=== PATIENT | male | born 1970 | race Hispanic/Latino ===

== ENCOUNTER 2018-04-01 22:21 | Emergency (ER) | payer SELFPAY ==
--- NOTE | 2018-04-01 23:15 | EDPHYS ---
Physician Documentation [facility] Name: Manfred Ralph Age: 47 yrs Sex: Male : 1970 Arrival Date: 04/01/2018 Time: 22:26 Bed 3 Private MD: ED Physician Magdiel Nunez HPI: 04/01 23:15 This 47 yrs old Male presents to ER via [employer] with complaints of pm1 ARTHRITIS. 23:15 The patient presents with pain, that is chronic. The complaints affect the left knee. pm1 Context:. Onset: The symptoms/episode began/occurred just prior to arrival. Modifying factors: The symptoms are alleviated by nothing. the symptoms are aggravated by movement, bending knee. Associated signs and symptoms: Pertinent negatives calf tenderness, fever. Treatment prior to arrival includes: no previous treatment. The patient has experienced similar episodes in the past, chronically. The patient has not recently seen a physician. Patient with history of arthritis to left knee. Patient reports that when he is under stress, and in this case getting arrested, his arthritis flares up. Historical: - Allergies: 22:32 No Known Allergies; bp - Home Meds: 22:32 None [Active]; bp - PMHx: 22:32 neuropathy; Hepatitis C; Diabetes - NIDDM; Cirrhosis; ADD/ADHD; Arthritis; bp - Immunization history:: Adult Immunizations up to date. - Social history:: Smoking status: unknown. - Ebola Screening: : Patient negative for fever greater than or equal to 101.5 degrees Fahrenheit, and additional compatible Ebola Virus Disease symptoms Patient denies exposure to infectious person Patient denies travel to an Ebola-affected area in the 21 days before illness onset No symptoms or risks identified at this time. ROS: 23:15 Constitutional: Negative for fever, chills, and weight loss, Eyes: Negative for injury, pm1 pain, redness, and discharge, ENT: Negative for injury, pain, and discharge, Neck: Negative for injury, pain, and swelling, Cardiovascular: Negative for chest pain, palpitations, and edema, Respiratory: Negative for shortness of breath, cough, wheezing, and pleuritic chest pain, Abdomen/GI: Negative for abdominal pain, nausea, vomiting, diarrhea, and constipation, Back: Negative for injury and pain, MS/Extremity: Negative for injury and deformity, Skin: Negative for injury, rash, and discoloration. 23:15 Neuro: Negative for headache, weakness, numbness, tingling, and seizure. 23:15 MS/extremity: Positive for pain, of the left knee. Exam: 23:15 Constitutional: This is a well developed, well nourished patient who is awake, alert, pm1 and in no acute distress. Head/Face: Normocephalic, atraumatic. Eyes: Pupils equal round and reactive to light, extra-ocular motions intact. Lids and lashes normal. Conjunctiva and sclera are non-icteric and not injected. Cornea within normal limits. Periorbital areas with no swelling, redness, or edema. ENT: Nares patent. No nasal discharge, no septal abnormalities noted. Tympanic membranes are normal and external auditory canals are clear. Oropharynx with no redness, swelling, or masses, exudates, or evidence of obstruction, uvula midline. Mucous membranes moist. Neck: Trachea midline, no thyromegaly or masses palpated, and no cervical lymphadenopathy. Supple, full range of motion without nuchal rigidity, or vertebral point tenderness. No Meningismus. Chest/axilla: Normal chest wall appearance and motion. Nontender with no deformity. No lesions are appreciated. Cardiovascular: Regular rate and rhythm with a normal S1 and S2. No gallops, murmurs, or rubs. Normal PMI, no JVD. No pulse deficits. Respiratory: Lungs have equal breath sounds bilaterally, clear to auscultation and percussion. No rales, rhonchi or wheezes noted. No increased work of breathing, no retractions or nasal flaring. Abdomen/GI: Soft, non-tender, with normal bowel sounds. No distension or tympany. No guarding or rebound. No evidence of tenderness throughout. Back: No spinal tenderness. No costovertebral tenderness. Full range of motion. Skin: Warm, dry with normal turgor. Normal color with no rashes, no lesions, and no evidence of cellulitis. 23:15 Musculoskeletal/extremity: Extremities: grossly normal except: noted in the left knee: mild tenderness. Vital Signs: 22:32 BP 114 / 90; Pulse 93; Resp 20; Temp 97.9; Pulse Ox 97% ; Weight 72.57 kg; Height 5 ft. bp 11 in. (180.34 cm); 23:24 BP 133 / 91; Pulse 79; Resp 17; Pulse Ox 98% on R/A; rv 22:32 Body Mass Index 22.32 (72.57 kg, 180.34 cm) bp MDM: 22:50 Patient medically screened. pm1 23:13 Data reviewed: vital signs. Data interpreted: Pulse oximetry: on room air is 97 %. pm1 Interpretation: normal. Counseling: I had a detailed discussion with the patient and/or guardian regarding: the historical points, exam findings, and any diagnostic results supporting the discharge/admit diagnosis, the need for outpatient follow up, to return to the emergency department if symptoms worsen or persist or if there are any questions or concerns that arise at home. Administered Medications: 23:22 Drug: TORadol 60 mg Route: IM; Site: right deltoid; rv 23:45 Follow up: Response: Pain is decreased bp Disposition: 04/02 07:15 Co-signature as Attending Physician, Magdiel Nunez MD I agree with the assessment and wai plan of care. Disposition: 04/01/18 23:15 Discharged to Home. Impression: Pain in left knee - Arthritis. - Condition is Stable. - Discharge Instructions: Arthralgia, Arthritis, Nonspecific. - Prescriptions for Diclofenac Sodium 75 mg Oral Tablet Sustained Release - take 1 tablet by ORAL route 2 times per day; 30 tablet. - Medication Reconciliation Form, Thank You Letter form. - Follow up: Emergency Department; When: As needed; Reason: Worsening of condition. Follow up: Private Physician; When: 2 - 3 days; Reason: Recheck today's complaints, Continuance of care, Re-evaluation by your physician. - Problem is new. - Symptoms have improved. Signatures: Magdiel Nunez MD MD cha Marinas, Patrick, SHANK PAPERER SHANK PAPERER pm1 David Ritter, RN RN bp Destin Haque, RN RN rv Corrections: (The following items were deleted from the chart) 04/01 23:45 23:15 04/01/2018 23:15 Discharged to Home. Impression: Pain in left knee - Arthritis. bp Condition is Stable. Forms are Medication Reconciliation Form, Thank You Letter, Antibiotic Education, Prescription Opioid Use. Follow up: Emergency Department; When: As needed; Reason: Worsening of condition. Follow up: Private Physician; When: 2 - 3 days; Reason: Recheck today's complaints, Continuance of care, Re-evaluation by your physician. Problem is new. Symptoms have improved. pm1
--- NOTE | 2018-04-01 23:15 | ER ---
Nurse's Notes [facility] Name: Manfred Ralph Age: 47 yrs Sex: Male : 1970 Arrival Date: 04/01/2018 Time: 22:26 Bed 3 Private MD: Diagnosis: Pain in left knee-Arthritis Presentation: 04/01 22:30 Presenting complaint: Patient states: IT'S MY ARTHRITIS. MY ARTHRITIS AND MY DIABETES bp ALWAYS GET WORSE WHEN I GET ARRESTED. Transition of care: patient was not received from another setting of care. Onset of symptoms is unknown. Risk Assessment: Do you want to hurt yourself or someone else? Patient reports no desire to harm self or others. Initial Sepsis Screen: Does the patient meet any 2 criteria? No. Patient's initial sepsis screen is negative. Does the patient have a suspected source of infection? No. Patient's initial sepsis screen is negative. Care prior to arrival: None. 22:30 Method Of Arrival: [employer] [facility]: [facility] bp 22:30 Acuity: PAUL 5 bp Triage Assessment: 22:32 General: Appears in no apparent distress. comfortable, slender, Behavior is calm, bp cooperative, appropriate for age. Pain: Complains of pain in right leg and left leg. EENT: No deficits noted. Neuro: Level of Consciousness is awake, alert, obeys commands, Oriented to person, place, time, situation, Appropriate for age. Cardiovascular: No deficits noted. Respiratory: Airway is patent Respiratory effort is even, unlabored, Respiratory pattern is regular, symmetrical. GI: No signs and/or symptoms were reported involving the gastrointestinal system. : No signs and/or symptoms were reported regarding the genitourinary system. Derm: No signs and/or symptoms reported regarding the dermatologic system. Musculoskeletal: Reports pain in right leg and left leg. Historical: - Allergies: 22:32 No Known Allergies; bp - Home Meds: 22:32 None [Active]; bp - PMHx: 22:32 neuropathy; Hepatitis C; Diabetes - NIDDM; Cirrhosis; ADD/ADHD; Arthritis; bp - Immunization history:: Adult Immunizations up to date. - Social history:: Smoking status: unknown. - Ebola Screening: : Patient negative for fever greater than or equal to 101.5 degrees Fahrenheit, and additional compatible Ebola Virus Disease symptoms Patient denies exposure to infectious person Patient denies travel to an Ebola-affected area in the 21 days before illness onset No symptoms or risks identified at this time. Screenin:36 Abuse screen: Denies threats or abuse. Denies injuries from another. Nutritional bp screening: No deficits noted. Tuberculosis screening: No symptoms or risk factors identified. Fall Risk None identified. Assessment: 22:35 Reassessment: SEE TRIAGE NOTE. PT STATES MX YEAR MED NON-COMPLIANCE AND ILLNESS bp EXACERBATION WHEN BEING INCARCERATED. PT AMBULATORY WITH STEADY GAIT. 23:42 Reassessment: Reassessment: PT D/C IN [facility], DX WITH ARTHRITIS. bp Vital Signs: 22:32 BP 114 / 90; Pulse 93; Resp 20; Temp 97.9; Pulse Ox 97% ; Weight 72.57 kg; Height 5 ft. bp 11 in. (180.34 cm); 23:24 BP 133 / 91; Pulse 79; Resp 17; Pulse Ox 98% on R/A; rv 22:32 Body Mass Index 22.32 (72.57 kg, 180.34 cm) bp ED Course: 22:26 Patient arrived in ED. es 22:30 David Ritter, RN is Primary Nurse. bp 22:31 Triage completed. bp 22:32 Arm band placed on. bp 22:36 Patient has correct armband on for positive identification. Bed in low position. Call bp light in reach. Side rails up X 1. Adult w/ patient. 22:49 Deandre Bennett NP is PHCP. pm1 22:49 Magdiel Nunez MD is Attending Physician. pm1 23:43 No provider procedures requiring assistance completed. Patient did not have IV access bp during this emergency room visit. Administered Medications: 23:22 Drug: TORadol 60 mg Route: IM; Site: right deltoid; rv 23:45 Follow up: Response: Pain is decreased bp Outcome: 23:15 Discharge ordered by . pm1 23:44 Discharged to [employer] bp 23:44 Condition: stable 23:44 Discharge instructions given to patient, Instructed on discharge instructions, follow up and referral plans. medication usage, Demonstrated understanding of instructions, follow-up care, medications, Prescriptions given X 1. 23:45 Patient left the ED. bp Signatures: Lina Bacon Patrick, NP GORE CUTTER pm1 David Ritter, NICKY RN bp Destin Haque RN RN rv Corrections: (The following items were deleted from the chart) 23:43 23:42 Reassessment: bp bp
[2018-04-01] MEDS ORDERED: KETOROLAC 30 MG/ML INJ ONE (23:18)
[2018-04-02 00:20] VITALS: TEMP 97.9
[2018-04-02 00:21] VITALS: BP 133/91; O2SAT 98
== END 2018-04-01 23:45 | disposition home or self-care (01) ==
LOC: ER 22:21
DX: M17.12 Unilateral primary osteoarthritis, left knee (principal); B19.20 Unspecified viral hepatitis C without hepatic coma; E11.9 Type 2 diabetes mellitus without complications; K74.60 Unspecified cirrhosis of liver; F90.9 Attention-deficit hyperactivity disorder, unspecified type
CPT/HCPCS: 96372; 99283

== ENCOUNTER 2018-06-29 21:10 | Emergency (ER) | payer SELFPAY ==
--- NOTE | 2018-06-29 21:56 | ER ---
Nurse's Notes [facility] Name: Manfred Ralph Age: 47 yrs Sex: Male : 1970 Arrival Date: 06/29/2018 Time: 21:14 Bed 8 Private MD: Diagnosis: Encounter for general adult medical examination without abnormal findings Presentation: 06/29 21:15 Presenting complaint: EMS states: they were toned out for report of pt having high bb blood sugar. Transition of care: patient was not received from another setting of care. Onset of symptoms was 2014. Risk Assessment: Do you want to hurt yourself or someone else? Patient reports no desire to harm self or others. Initial Sepsis Screen: Does the patient meet any 2 criteria? No. Patient's initial sepsis screen is negative. Does the patient have a suspected source of infection? No. Patient's initial sepsis screen is negative. Care prior to arrival: Glucose check: 257. 21:15 Method Of Arrival: EMS: [facility] bb 21:15 Acuity: PAUL 3 bb 21:17 Note pt states he is having pain all over his symptoms started approx 3 years ago when bb he started having his medications changed now he is unable to eat and he vomits every morning he is only able to eat a small amount once a day or less. Pt has left heel wound. Historical: - Allergies: 21:16 No Known Allergies; bb - Home Meds: 21:16 Unable to obtain [Active]; bb - PMHx: 21:16 ADD/ADHD; Arthritis; Cirrhosis; Diabetes - NIDDM; Hepatitis C; neuropathy; bb - Immunization history:: Adult Immunizations unknown. - Social history:: Smoking status: Patient/guardian denies using tobacco, Patient/guardian denies using alcohol, street drugs. - Ebola Screening: : No symptoms or risks identified at this time. Screenin:25 Abuse screen: Denies threats or abuse. Denies injuries from another. Nutritional aa1 screening: Has had N/V for 3 or more days. Tuberculosis screening: No symptoms or risk factors identified. Fall Risk None identified. Assessment: 21:25 General: Appears in no apparent distress. comfortable, slender, unkempt, Behavior is aa1 calm, cooperative, appropriate for age. Pain: Complains of pain in left foot and right foot and left leg and right leg Pain currently is 10 out of 10 on a pain scale. Pain began years ago. Is chronic. Neuro: Level of Consciousness is awake, alert, obeys commands, Moves all extremities. Speech is normal. Cardiovascular: Heart tones S1 S2 present Rhythm is regular. Respiratory: Airway is patent Respiratory effort is even, unlabored, Respiratory pattern is regular, symmetrical. GI: Abdomen is non-distended, Reports anorexia, vomiting, since past 3 years. : No signs and/or symptoms were reported regarding the genitourinary system. EENT: Poor dentition noted. Reports his teeth having been falling out over past 3 years. Derm: Skin is intact, is healthy with good turgor, Skin is pink, warm \T\ dry. multiple areas of discoloration noted to BLE without signs of infections noted. Musculoskeletal: Circulation, motion, and sensation intact. Capillary refill < 3 seconds, Range of motion: intact in all extremities. 21:45 Reassessment: Patient appears in no apparent distress at this time. Patient is alert, aa1 oriented x 3, equal unlabored respirations, skin warm/dry/pink. Pt medically screened and declined treatment. Vital Signs: 21:16 BP 144 / 93; Pulse 76; Resp 16 S; Temp 97.6(TE); Pulse Ox 100% on R/A; Weight 72.57 kg bb (R); Height 5 ft. 11 in. (180.34 cm) (R); Pain 10/10; 21:16 Body Mass Index 22.32 (72.57 kg, 180.34 cm) bb ED Course: 21:14 Patient arrived in ED. bb 21:16 Triage completed. bb 21:16 Arm band placed on Patient placed in an exam room, on a stretcher, on pulse oximetry. bb 21:20 Shay Eldridge PA is PHCP. jr8 21:20 Santana لاعلي MD is Attending Physician. jr8 21:24 Yola Garcia RN is Primary Nurse. aa1 21:25 Patient has correct armband on for positive identification. Bed in low position. Call aa1 light in reach. Pulse ox on. NIBP on. 21:45 No provider procedures requiring assistance completed. Patient did not have IV access aa1 during this emergency room visit. Administered Medications: No medications were administered Point of Care Testing: Blood Glucose: 21:24 Blood Glucose: 281 mg/dL; aa1 Ranges: Outcome: 21:50 Medical screen evaluation completed per provider. Patient declined treatment. aa1 21:50 Condition: stable 21:50 Following a medical screening exam, the patient was provided information regarding alternative care sites and resources available per registration personnel. 21:55 Discharge ordered by MD. espitia 22:06 Patient left the ED. aa1 Signatures: Yola Garcia RN RN aa1 Alecia Rothman RN RN bb Shay Eldridge PA PA jr8
--- NOTE | 2018-06-29 21:56 | EDPHYS ---
Physician Documentation [facility] Name: Manfred Ralph Age: 47 yrs Sex: Male : 1970 Arrival Date: 06/29/2018 Time: 21:14 Bed 8 Private MD: ED Physician Santana العلي HPI: 06/29 21:21 This 47 yrs old Male presents to ER via EMS with complaints of chronic pain. jr8 21:21 Onset: The symptoms/episode began/occurred 4 year(s) ago. Associated signs and jr8 symptoms: Pertinent positives: None. Current symptoms: In the emergency department the patient's symptoms are unchanged from the initial presentation. Patient stated that he is non compliant with his medications because they hurt his stomach. Has been trying to follow up with [facility] for the past 4 years but has yet to see anyone. That his last PCP is no longer there. Came to ED today because his lower legs hurt which he stated that he has had for 4 years. Denies new pain. Denies any other complaints . Historical: - Allergies: 21:16 No Known Allergies; bb - Home Meds: 21:16 Unable to obtain [Active]; bb - PMHx: 21:16 ADD/ADHD; Arthritis; Cirrhosis; Diabetes - NIDDM; Hepatitis C; neuropathy; bb - Immunization history:: Adult Immunizations unknown. - Social history:: Smoking status: Patient/guardian denies using tobacco, Patient/guardian denies using alcohol, street drugs. - Ebola Screening: : No symptoms or risks identified at this time. ROS: 21:21 Eyes: Negative for injury, pain, redness, and discharge, ENT: Negative for injury, jr8 pain, and discharge, Neck: Negative for injury, pain, and swelling, Cardiovascular: Negative for chest pain, palpitations, and edema, Respiratory: Negative for shortness of breath, cough, wheezing, and pleuritic chest pain, Abdomen/GI: Negative for abdominal pain, nausea, vomiting, diarrhea, and constipation, Back: Negative for injury and pain, Skin: Negative for injury, rash, and discoloration. 21:21 MS/extremity: Positive for pain, of the right leg and left leg. 21:21 Neuro: Positive for numbness, tingling, of the right foot, left foot, right leg and left leg. Exam: 21:21 Eyes: Pupils equal round and reactive to light, extra-ocular motions intact. Lids and jr8 lashes normal. Conjunctiva and sclera are non-icteric and not injected. Cornea within normal limits. Periorbital areas with no swelling, redness, or edema. ENT: Nares patent. No nasal discharge, no septal abnormalities noted. Tympanic membranes are normal and external auditory canals are clear. Oropharynx with no redness, swelling, or masses, exudates, or evidence of obstruction, uvula midline. Mucous membranes moist. Neck: Trachea midline, no thyromegaly or masses palpated, and no cervical lymphadenopathy. Supple, full range of motion without nuchal rigidity, or vertebral point tenderness. No Meningismus. Cardiovascular: Regular rate and rhythm with a normal S1 and S2. No gallops, murmurs, or rubs. Normal PMI, no JVD. No pulse deficits. Respiratory: Lungs have equal breath sounds bilaterally, clear to auscultation and percussion. No rales, rhonchi or wheezes noted. No increased work of breathing, no retractions or nasal flaring. Abdomen/GI: Soft, non-tender, with normal bowel sounds. No distension or tympany. No guarding or rebound. No evidence of tenderness throughout. Back: No spinal tenderness. No costovertebral tenderness. Full range of motion. Skin: Warm, dry with normal turgor. Normal color with no rashes and no evidence of cellulitis. Scabbing wounds to bilateral legs without bleeding or erythema MS/ Extremity: Pulses equal, no cyanosis. Neurovascular intact. Full, normal range of motion. Neuro: Awake and alert, GCS 15, oriented to person, place, time, and situation. Cranial nerves II-XII grossly intact. Motor strength 5/5 in all extremities. Unable to complete sensory exam dena bourgeois stated that touching him hurts too much Vital Signs: 21:16 BP 144 / 93; Pulse 76; Resp 16 S; Temp 97.6(TE); Pulse Ox 100% on R/A; Weight 72.57 kg bb (R); Height 5 ft. 11 in. (180.34 cm) (R); Pain 10/10; 21:16 Body Mass Index 22.32 (72.57 kg, 180.34 cm) MDM: 21:20 Patient medically screened. 8 21:46 Data reviewed: vital signs, nurses notes, lab test result(s), finger stick glucose. jr8 Data interpreted: Pulse oximetry: on room air is 100 %. Interpretation: normal. Counseling: I had a detailed discussion with the patient and/or guardian regarding: the historical points, exam findings, and any diagnostic results supporting the discharge/admit diagnosis, the need for outpatient follow up, a family practitioner, to return to the emergency department if symptoms worsen or persist or if there are any questions or concerns that arise at home. Medical screen evaluation completed. [facility] emergency medical condition absent. ED course: Patient hemodynamically stable. Physical exam from what the patient would let me complete was without acute findings. Explained to patient that there is no emergent process at this time. That the chronic pain that he has had for several years is something that needs to be further addressed with his PCP or pain management. Otherwise we would be happy to address any other medical concerns that he had. Patient medically screened and denied further evaluation and treatment at that time . 06/29 21:20 Order name: Glucose Level; Complete Time: 21:24 jr8 Administered Medications: No medications were administered Point of Care Testing: Blood Glucose: 21:24 Blood Glucose: 281 mg/dL; aa1 Ranges: Critical Glucose Levels:Adult <50 mg/dl or >400 mg/dl <40 mg/dl or >180 mg/dl Disposition: 21:53 Diabetic Neuropathy, Chronic Pain. jr8 22:13 Co-signature as Attending Physician, Santana العلي MD. [facility] Disposition: 06/29/18 21:55 Discharged to Home. Impression: Encounter for general adult medical examination without abnormal findings. - Condition is Stable. - Medication Reconciliation Form, Thank You Letter, Antibiotic Education, Prescription Opioid Use form. - Follow up: Private Physician; When: 1 - 2 days; Reason: Recheck today's complaints, Continuance of care, Re-evaluation by your physician. - Problem is new. - Symptoms are unchanged. Signatures: Yola Garcia RN RN aa1 Santana العلي MD MD pk Alecia Rothman RN RN bb Roszak, Josh, PA PA jr8 Corrections: (The following items were deleted from the chart) 21:48 21:21 Eyes: Pupils equal round and reactive to light, extra-ocular motions intact. Lids jr8 and lashes normal. Conjunctiva and sclera are non-icteric and not injected. Cornea within normal limits. Periorbital areas with no swelling, redness, or edema. ENT: Nares patent. No nasal discharge, no septal abnormalities noted. Tympanic membranes are normal and external auditory canals are clear. Oropharynx with no redness, swelling, or masses, exudates, or evidence of obstruction, uvula midline. Mucous membranes moist. Neck: Trachea midline, no thyromegaly or masses palpated, and no cervical lymphadenopathy. Supple, full range of motion without nuchal rigidity, or vertebral point tenderness. No Meningismus. Cardiovascular: Regular rate and rhythm with a normal S1 and S2. No gallops, murmurs, or rubs. Normal PMI, no JVD. No pulse deficits. Respiratory: Lungs have equal breath sounds bilaterally, clear to auscultation and percussion. No rales, rhonchi or wheezes noted. No increased work of breathing, no retractions or nasal flaring. Abdomen/GI: Soft, non-tender, with normal bowel sounds. No distension or tympany. No guarding or rebound. No evidence of tenderness throughout. Back: No spinal tenderness. No costovertebral tenderness. Full range of motion. Skin: Warm, dry with normal turgor. Normal color with no rashes, no lesions, and no evidence of cellulitis. MS/ Extremity: Pulses equal, no cyanosis. Neurovascular intact. Full, normal range of motion. Neuro: Awake and alert, GCS 15, oriented to person, place, time, and situation. Cranial nerves II-XII grossly intact. Motor strength 5/5 in all extremities. Unable to complete sensory exam mirellatahira bourgeois stated that touching him hurts too much jrEnrrique 22:06 21:55 06/29/2018 21:55 Discharged to Home. Impression: Encounter for general adult aa1 medical examination without abnormal findings. Condition is Stable. Forms are Medication Reconciliation Form, Thank You Letter, Antibiotic Education, Prescription Opioid Use. Follow up: Private Physician; When: 1 - 2 days; Reason: Recheck today's complaints, Continuance of care, Re-evaluation by your physician. Problem is new. Symptoms are unchanged. jr8 22:19 21:21 Patient stated that he is non compliant with his medications because they hurt jr8 his stomach. Has been trying to follow up with [facility] for the past 4 years but cannot see anyone. Came to ED today because his lower legs hurt which he stated that he has had for years. jr8 22:21 21:46 ED course: Patient hemodynamically stable. Physical exam from what the patient jr8 would let me complete was without acute findings. Explained to patient that there is no emergent process at this time. That the chronic pain that he has had for several years is something that needs to be further addressed with his PCP or pain management. Otherwise we would be happy to address any other medical concerns that he had. Patient medically screened and denied further evaluation and treatment at that time . jr8
[2018-06-29 22:57] VITALS: BP 144/93; TEMP 97.6; O2SAT 100
== END 2018-06-29 22:06 | disposition home or self-care (01) ==
LOC: ER 21:10
DX: Z00.00 Encounter for general adult medical examination without abnormal findings (principal); E11.40 Type 2 diabetes mellitus with diabetic neuropathy, unspecified; G89.29 Other chronic pain; B18.2 Chronic viral hepatitis C; M19.90 Unspecified osteoarthritis, unspecified site
CPT/HCPCS: 82962; 99283

== ENCOUNTER 2018-09-15 15:51 | Emergency (ER) | payer SELFPAY ==
[2018-09-15 17:08] LABS: Absolute Lymphocytes (CBC) 2.6 K/uL (0.7-4.9); Absolute Monocytes 0.6 K/uL (0.1-1.3); Absolute Neutrophil 6.6 K/uL (1.8-8.0); Basophils % 0.6 % (0-1.3); Eosinophils % 0.6 % (0-4.4); Hematocrit 45.5 % (39.6-49.0); Lymphocytes % 26.4 % (15.3-44.8); MCH 31.2 pg (27.0-35.0); MCV 91.8 fL (80-100); RBC Red Blood Cell Count 4.95 M/uL (4.33-5.43)
[2018-09-15 17:12] LABS: Barbiturates NEGATIVE (NEGATIVE); Benzodiazepines NEGATIVE (NEGATIVE); Cocaine NEGATIVE (NEGATIVE); METHAMPHETAM NEGATIVE (NEGATIVE); Methadone NEGATIVE (NEGATIVE); Opiates NEGATIVE (NEGATIVE); Phencyclidine NEGATIVE (NEGATIVE); THC Cannibis NEGATIVE (NEGATIVE)
[2018-09-15 17:23] LABS: Protime INR 1.03
[2018-09-15 17:45] LABS: ALT/SGPT 19 U/L (12-78); AST/SGOT 13 U/L (15-37); Albumin 3.9 g/dL (3.4-5.0); Alkaline Phosphatase 94 U/L (45-117); BUN Blood Urea Nitrogen 21 mg/dL (7-18); Bicarbonate 31 mmol/L (21-32); Bilirubin Direct 0.1 mg/dL (0-0.2); Bilirubin Total 0.5 mg/dL (0.2-1.0); Glucose Level 240 mg/dL (74-106); Protein, Total 7.8 g/dL (6.4-8.2); Sodium Level 136 mmol/L (136-145)
[2018-09-15 17:53] LABS: Urine Blood NEGATIVE (NEG); Urine Glucose 2+ (NEG); Urine Protein TRACE (NEG); Urine Specific Gravity 1.025 (1.005-1.030); Urine pH 5.5 (5.0-7.0)
[2018-09-15] MEDS ORDERED: HYDROCODONE/APAP 7.5/325 MG TAB ONE (19:59)
[2018-09-15] MEDS ORDERED: ONDANSETRON 4 MG (ODT) TAB ONE (20:35)
[2018-09-16] MEDS ORDERED: LORazepam 2 MG/ML VIAL ONE (03:43)
--- NOTE | 2018-09-16 05:52 | EKG ---
Test Date: 2018-09-15 Test Time: 16:59:56 Assistant Reading Teacher: KOJO MEASUREMENT RESULTS: Intervals: Rate: 73 WA: 160 QRSD: 86 QT: 382 QTc: 420 [place]: P: 38 WA: 160 QRS: 58 T: 52 INTERPRETIVE STATEMENTS: Normal sinus rhythm Normal ECG Compared to ECG 07/05/2016 06:21:15 No significant changes Electronically Signed On 09-16-18 05:51:49 PLANT TOUR GUIDE by Varun Miranda
--- NOTE | 2018-09-16 09:18 | EDPHYS ---
Physician Documentation [facility] Name: Manfred Ralph Age: 47 yrs Sex: Male : 1970 Arrival Date: 09/15/2018 Time: 15:53 Bed 17 Private MD: None, None ED Physician Magdiel Nunez HPI: 09/15 16:55 This 47 yrs old Male presents to ER via Ambulatory with complaints of Suicidal ma2 Ideation. 16:55 The patient presents to the emergency department with suicide ideation, and the patient ma2 has a plan. Onset: The symptoms/episode began/occurred acutely, 1 day(s) ago. Associated signs and symptoms: Pertinent positives; anxiety, Pertinent negatives:. Severity of symptoms: At their worst the symptoms were severe in the emergency department the symptoms are unchanged. The patient has not experienced similar symptoms in the past. has hep c DM neuropathy depression here with SI x 1 day has guns and has a plan. Historical: - Allergies: 16:25 NKA; iw - PMHx: 16:23 ADD/ADHD; Arthritis; Cirrhosis; Diabetes - NIDDM; Hepatitis C; neuropathy; iw - Immunization history:: Adult Immunizations unknown. - Social history:: Patient uses street drugs, Patient/guardian denies using The patient lives with family, Smoking status: Patient uses tobacco products, Patient uses alcohol, street drugs, marijuana. - Ebola Screening: : Patient negative for fever greater than or equal to 101.5 degrees Fahrenheit, and additional compatible Ebola Virus Disease symptoms Patient denies exposure to infectious person Patient denies travel to an Ebola-affected area in the 21 days before illness onset No symptoms or risks identified at this time. - Family history:: not pertinent, pertinent for. - Hospitalizations: : No recent hospitalization is reported. ROS: 16:55 Constitutional: Negative for fever, chills, and weight loss, Eyes: Negative for injury, ma2 pain, redness, and discharge, Cardiovascular: Negative for chest pain, palpitations, and edema, Respiratory: Negative for shortness of breath, cough, wheezing, and pleuritic chest pain, Abdomen/GI: Negative for abdominal pain, nausea, diarrhea, and constipation. 16:55 Psych: Positive for depression, suicidal ideation, Negative for visual hallucinations, homicidal ideation. 16:55 All other systems are negative. Exam: 16:55 Constitutional: This is a well developed, well nourished patient who is awake, alert, ma2 and in no acute distress. Chest/axilla: Normal chest wall appearance and motion. Nontender with no deformity. No lesions are appreciated. Cardiovascular: Regular rate and rhythm with a normal S1 and S2. No gallops, murmurs, or rubs. Normal PMI, no JVD. No pulse deficits. Respiratory: Lungs have equal breath sounds bilaterally, clear to auscultation and percussion. No rales, rhonchi or wheezes noted. No increased work of breathing, no retractions or nasal flaring. Abdomen/GI: Soft, non-tender, with normal bowel sounds. No distension or tympany. No guarding or rebound. No evidence of tenderness throughout. 16:55 Psych: Affect is calm, Patient having thoughts of suicide. Delusions/hallucinations are not present. 09/16 19:51 Psych: pt alert and oriented x 3, cooperative, pleasant, wants to get his life right, wai get on disability. denies suicidal and homicidal ideation. Vital Signs: 09/15 16:15 BP 169 / 103; Pulse 75; Resp 18; Temp 98.1(TE); Pulse Ox 99% on R/A; Weight 68.04 kg; hj Height 5 ft. 9 in. (175.26 cm); 19:12 BP 126 / 95; Pulse 83; Resp 18; Temp 98.4(O); Pulse Ox 95% on R/A; jb5 23:00 BP 112 / 95; Pulse 83; Resp 18; Temp 98.7; Pulse Ox 98% on R/A; gc 09/16 03:11 BP 145 / 95; Pulse 98; Resp 18; Temp 98.7; Pulse Ox 99% on R/A; gc 07:03 BP 122 / 93; Pulse 81; Resp 16; Temp 98.8; Pulse Ox 98% on R/A; gc 11:00 BP 153 / 94; Pulse 86; Resp 16; Pulse Ox 99% on R/A; Pain 0/10; dh3 12:40 BP 165 / 91 LA (auto/reg); Pulse 88; Resp 18 S; Pulse Ox 100% on R/A; jp3 14:40 BP 139 / 80; Pulse 90; Resp 18; Pulse Ox 97% on R/A; gm 17:25 BP 127 / 92 LA Sitting (auto/reg); Pulse 88; Resp 18; Pulse Ox 99% on R/A; jp3 19:57 BP 154 / 96; Pulse 100; Resp 18; Pulse Ox 98% on R/A; mt 09/15 16:15 Body Mass Index 22.15 (68.04 kg, 175.26 cm) hj MDM: 09/15 16:04 Patient medically screened. ma2 16:55 Differential diagnosis: drug withdrawal. acute psychotic break, depression, psychosis ma2 secondary to non-compliance. 17:59 Data reviewed: vital signs, nurses notes, lab test result(s). Counseling: I had a ma detailed discussion with the patient and/or guardian regarding: the historical points, exam findings, and any diagnostic results supporting the discharge/admit diagnosis, the presence of at least one elevated blood pressure reading (>120/80) during this emergency department visit, lab results, radiology results. Medical screen evaluation completed. EMTALA emergency medical condition absent. ED course: patient is medically cleared and pending [facility] evaluation for active SI. 09/15 16:49 Order name: Acetaminophen [facility] 09/15 16:49 Order name: Basic Metabolic Panel [facility] 09/15 16:49 Order name: CBC with Diff [facility] 09/15 16:49 Order name: ETOH Level [facility] 09/15 16:49 Order name: Hepatic Function [facility] 09/15 16:49 Order name: PT-INR [facility] 09/15 16:49 Order name: Ptt, Activated [facility] 09/15 16:49 Order name: Salicylate [facility] 09/15 16:49 Order name: Urine Drug Screen [facility] 09/15 17:12 Order name: Urine Dipstick--Ancillary (enter results) 09/15 17:17 Order name: Urine Drug Screen; Complete Time: 17:58 EDMS 09/15 17:22 Order name: CBC with Automated Diff; Complete Time: 17:58 EDMS 09/15 17:23 Order name: Protime (+INR); Complete Time: 17:58 EDMS 09/15 17:23 Order name: PTT, Activated Partial Thromb; Complete Time: 17:58 EDMS 09/15 16:49 Order name: EKG; Complete Time: 16:50 [facility] 09/15 17:44 Order name: Alcohol Serum/Plasma; Complete Time: 17:58 EDMS 09/15 17:46 Order name: Basic Metabolic Panel; Complete Time: 17:58 EDMS 09/15 17:46 Order name: Liver (Hepatic) Function; Complete Time: 17:58 EDMS 09/15 17:46 Order name: Acetaminophen Level; Complete Time: 17:58 EDMS 09/15 17:50 Order name: Salicylates Level; Complete Time: 17:58 EDMS 09/15 17:53 Order name: Urine Dipstick-Ancillary; Complete Time: 17:58 EDMS 09/16 07:21 Order name: Diet Ada 1999 [place]; Complete Time: 07:23 sv 09/16 13:56 Order name: Glucose, Ancillary Testing; Complete Time: 19:51 EDMS 09/16 17:30 Order name: Glucose, Ancillary Testing; Complete Time: 19:51 EDMS 09/15 16:49 Order name: EKG - Nurse/Tech; Complete Time: 16:57 ma2 09/15 16:49 Order name: IV Saline Lock; Complete Time: 16:52 ma2 09/15 16:49 Order name: Labs collected and sent; Complete Time: 16:52 ma2 09/15 16:49 Order name: Urine Dipstick-Ancillary (obtain specimen); Complete Time: 16:52 ma2 09/16 11:44 Order name: Diet Ada 1999; Complete Time: 12:13 sv 09/16 16:49 Order name: Diet Ada 1999; Complete Time: 16:59 sv Administered Medications: 19:53 Drug: [place] (7.5 mg-325 mg) 1 tabs Route: PO; lp1 21:00 Follow up: Response: Pain is decreased lp1 20:28 Drug: Zofran 4 mg Route: PO; lp1 21:30 Follow up: Response: Nausea is decreased lp1 09/16 03:40 Drug: Ativan 2 mg Route: IVP; Site: right antecubital; lp1 19:24 Follow up: Response: No adverse reaction ak1 09:28 Drug: [place] (7.5 mg-325 mg) 1 tabs Route: PO; sv 10:09 Follow up: Response: No adverse reaction sv 17:02 Drug: [place] (7.5 mg-325 mg) 1 tabs Route: PO; sv 17:29 Follow up: Response: No adverse reaction sv 19:58 Drug: fentaNYL Patch (50 mcg/hr) 1 patches Route: Transdermal; Site: affected area; ak1 19:59 Follow up: Response: No adverse reaction; Pain is decreased ak1 Point of Care Testing: Blood Glucose: 09/15 23:44 Blood Glucose: 208 mg/dL; jb5 09/16 07:19 Blood Glucose: 199 mg/dL; jb1 12:40 Blood Glucose: 208 mg/dL; sv 12:40 done by [facility] Ranges: Critical Glucose Levels:Adult <50 mg/dl or >400 mg/dl <40 mg/dl or >180 mg/dl Disposition: 09/16/18 19:55 Discharged to Home. Impression: Suicidal ideations, Major depressive disorder, recurrent, Type 2 diabetes mellitus, Other chronic pain. - Condition is Stable. - Discharge Instructions: Chronic Pain, Type 2 Diabetes Mellitus, Diagnosis, Adult, Helping Someone Who is Suicidal, Type 2 Diabetes Mellitus, Diagnosis, Adult, [id number], Major Depressive Disorder, [id number], Major Depressive Disorder. - Prescriptions for Pepcid 20 mg Oral Tablet - take 1 tablet by ORAL route every 12 hours for 10 days; 20 tablet. Tylenol- Codeine #3 300-30 mg Oral Tablet - take 2 tablets by ORAL route every 6 hours As needed; 26 tablet. Zofran 4 mg Oral Tablet - take 1 tablet by ORAL route every 12 hours As needed; 20 tablet. - Medication Reconciliation Form, Thank You Letter, Antibiotic Education, Prescription Opioid Use form. - Follow up: Private Physician; When: 2 - 3 days; Reason: Recheck today's complaints, Continuance of care, Re-evaluation by your physician. Follow up: Maverick Corley MD; When: 2 - 3 days; Reason: Recheck today's complaints, Re-evaluation by your physician. - Problem is new. - Symptoms have improved. Signatures: Dispatcher [employer] EDMS Blanca Boyd, RN Magdiel Hester MD MD cha Williams, Irene, RN NICKY iw Didi Prince, RN RN lp1 Kole Harman RN RN la1 Shaina Hamilton RN RN ak1 Desmond Spaulding RN Leobardo Zamora RN RN jb4 Cecilia Chester MD MD ma2 Corrections: (The following items were deleted from the chart) 19:53 09:17 09/16/2018 09:17 Transfer ordered to Psych Facility. Diagnosis is Suicidal wai ideations; Major depressive disorder, recurrent; Type 2 diabetes mellitus; Unspecified cirrhosis of liver. Reason for transfer: Higher level of care. Accepting physician is to [facility]. Condition is Stable. Problem is new. Symptoms have improved. wai 20:04 19:55 09/16/2018 19:55 Discharged to Home. Impression: Suicidal ideations; Major ak1 depressive disorder, recurrent; Type 2 diabetes mellitus; Other chronic pain. Condition is Stable. Forms are Medication Reconciliation Form, Thank You Letter, Antibiotic Education, Prescription Opioid Use. Follow up: Private Physician; When: 2 - 3 days; Reason: Recheck today's complaints, Continuance of care, Re-evaluation by your physician. Follow up: Maverick Corley; When: 2 - 3 days; Reason: Recheck today's complaints, Re-evaluation by your physician. Problem is new. Symptoms have improved. wai
--- NOTE | 2018-09-16 09:18 | ER ---
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 present: Yes. 11:30 Safety checks: Items removed: yes. Door open/sign placed on door: yes. Family/friend jp3 present: no. Sitter present: Yes. 11:45 Safety checks: Items removed: yes. Door open/sign placed on door: yes. Family/friend jp3 present: no. Sitter present: Yes. 12:00 Safety checks: Items removed: yes. Door open/sign placed on door: yes. Family/friend jp3 present: yes. Family/friends encouraged to stay with patient. Sitter present: Yes. 12:15 Safety checks: Items removed: yes. Door open/sign placed on door: yes. Family/friend jp3 present: yes. Family/friends encouraged to stay with patient. Sitter present: Yes. 12:30 Safety checks: Items removed: yes. Door open/sign placed on door: yes. Family/friend jp3 present: yes. Family/friends encouraged to stay with patient. Sitter present: Yes. 12:45 Safety checks: Items removed: yes. Door open/sign placed on door: yes. Family/friend jp3 present: yes. Family/friends encouraged to stay with patient. Sitter present: Yes. 12:52 Diet: Patient given a regular meal tray. Tolerated well. jp3 13:00 Safety checks: Items removed: yes. Door open/sign placed on door: yes. Family/friend jp3 present: no. Sitter present: Yes. 13:15 Safety checks: Items removed: yes. Door open/sign placed on door: yes. Family/friend jp3 present: no. Sitter present: Yes. 13:30 Safety checks: Items removed: yes. Door open/sign placed on door: yes. Family/friend jp3 present: no. Sitter present: Yes. 13:45 Safety checks: Items removed: yes. Door open/sign placed on door: yes. Family/friend jp3 present: no. Sitter present: Yes. 14:00 Safety checks: Items removed: yes. Door open/sign placed on door: yes. Family/friend jp3 present: no. Sitter present: Yes. 14:15 Safety checks: Items removed: yes. Door open/sign placed on door: yes. Family/friend jp3 present: no. Sitter present: Yes. 14:30 Safety checks: Items removed: yes. Door open/sign placed on door: yes. Family/friend jp3 present: no. Sitter present: Yes. 14:45 Safety checks: Items removed: yes. Door open/sign placed on door: yes. Family/friend gm present: no. Sitter present: Yes. 15:00 Safety checks: Items removed: yes. Door open/sign placed on door: yes. Family/friend gm present: no. Sitter present: Yes. 15:14 Safety checks: Items removed: yes. Door open/sign placed on door: yes. Family/friend gm present: no. Sitter present: Yes. 15:30 Safety checks: Items removed: yes. Door open/sign placed on door: yes. Family/friend jp3 present: yes. Sitter present: Yes. 15:45 Safety checks: Items removed: yes. Door open/sign placed on door: yes. Family/friend jp3 present: no. Sitter present: Yes. 16:00 Safety checks: Items removed: yes. Door open/sign placed on door: yes. Family/friend jp3 present: no. Sitter present: Yes. 16:15 Safety checks: Items removed: yes. Door open/sign placed on door: yes. Family/friend jp3 present: no. Sitter present: Yes. 16:30 Safety checks: Items removed: yes. Door open/sign placed on door: yes. Family/friend jp3 present: no. Sitter present: Yes. 16:45 Safety checks: Items removed: yes. Door open/sign placed on door: yes. Family/friend jp3 present: no. Sitter present: Yes. 17:00 Safety checks: Items removed: yes. Door open/sign placed on door: yes. Family/friend jp3 present: no. Sitter present: Yes. 17:15 Safety checks: Items removed: yes. Door open/sign placed on door: yes. Family/friend jp3 present: no. Sitter present: Yes. 17:30 Safety checks: Items removed: yes. Door open/sign placed on door: yes. Family/friend jp3 present: no. Sitter present: Yes. Diet:. 17:38 Diet: Patient given a regular meal tray. Tolerated well. jp3 17:45 Safety checks: Items removed: yes. Door open/sign placed on door: yes. Family/friend jp3 present: no. Sitter present: Yes. 18:00 No apparent distress. Safety Checks: Personal items have been removed. The door is open sv or patient has been placed in a hallway bed/chair. There are no family/friend visitors at this time Sitter present at this time. 18:00 Safety checks: Items removed: yes. Door open/sign placed on door: yes. Family/friend jp3 present: no. Sitter present: Yes. 18:15 Safety checks: Items removed: yes. Door open/sign placed on door: yes. Family/friend jp3 present: no. Sitter present: Yes. 18:30 Safety checks: Items removed: yes. Door open/sign placed on door: yes. Family/friend jp3 present: no. Sitter present: Yes. 18:45 Safety checks: Items removed: yes. Door open/sign placed on door: yes. Family/friend jp3 present: no. Sitter present: Yes. 18:54 Report given to Shaina SAUNDERS. 18:55 Primary Nurse role handed off by Blanca Boyd RN 19:00 Safety checks: Items removed: yes. Door open/sign placed on door: yes. Family/friend mt present: yes. Sitter present: Yes. 19:07 Shaina Hamilton RN is Primary Nurse. [facility] 19:15 Safety checks: Items removed: yes. Door open/sign placed on door: yes. Family/friend mt present: yes. Sitter present: Yes. 19:30 Safety checks: Items removed: yes. Door open/sign placed on door: yes. Family/friend mt present: yes. Sitter present: Yes. 19:45 Safety checks: Items removed: yes. Door open/sign placed on door: yes. Family/friend mt present: yes. Sitter present: Yes. 19:50 Attending Physician role handed off by Cecilia Chester MD [facility] 19:50 Magdiel Nunez MD is Attending Physician. [facility] 19:54 Maverick Corley MD is Referral Physician. [facility] Administered Medications: 09/15 19:53 Drug: Eureka (7.5 mg-325 mg) 1 tabs Route: PO; lp1 21:00 Follow up: Response: Pain is decreased lp1 20:28 Drug: Zofran 4 mg Route: PO; lp1 21:30 Follow up: Response: Nausea is decreased lp1 09/16 03:40 Drug: Ativan 2 mg Route: IVP; Site: right antecubital; lp1 19:24 Follow up: Response: No adverse reaction ak1 09:28 Drug: Eureka (7.5 mg-325 mg) 1 tabs Route: PO; sv 10:09 Follow up: Response: No adverse reaction sv 17:02 Drug: Eureka (7.5 mg-325 mg) 1 tabs Route: PO; sv 17:29 Follow up: Response: No adverse reaction sv 19:58 Drug: fentaNYL Patch (50 mcg/hr) 1 patches Route: Transdermal; Site: affected area; ak1 19:59 Follow up: Response: No adverse reaction; Pain is decreased ak1 Point of Care Testing: Blood Glucose: 09/15 23:44 Blood Glucose: 208 mg/dL; jb5 09/16 07:19 Blood Glucose: 199 mg/dL; jb1 12:40 Blood Glucose: 208 mg/dL; sv 12:40 done by [facility] sv Ranges: Intake: 09:54 PO: 240ml; Total: 240ml. sv Output: 10:35 Urine: 300ml (Voided); Total: 300ml. sv 14:20 Urine: 250ml (Voided); Total: 550ml. jp3 Outcome: 09:17 ER care complete, transfer ordered by . wai 19:55 Discharge ordered by . [facility] 20:03 Discharged to home ambulatory, with family. ak1 20:03 Condition: good 20:03 Discharge instructions given to patient, family, Instructed on discharge instructions, follow up and referral plans. no drinking with medication, no driving heavy equipment, medication usage, Demonstrated understanding of instructions, follow-up care, medications, Prescriptions given X 3. 20:04 Patient left the ED. ak1 Signatures: Josiah Diaz jb1 Catherine Pantoja Stephanie, RN RN sv Anderson, Corey, MD MD cha Williams, Irene, RN RN Arely Mejia RN RN ss Didi Prince RN RN lp1 Shaina Hamilton RN RN ak1 Desmond Spaulding RN RN hj Broussard, Jennifer jb5 Marie Nair mt, [facility] Cecilia Chester MD MD ma2 Marychuy Cardenas2 Ambreen Chappell 3 Destin Haque RN RN Ruddy Elkins jp3 Chaya Huertas gc, Gabriella gm Corrections: (The following items were deleted from the chart) 09/15 16:43 16:15 68.04 kg; Height 5 ft. 9 in.; BMI: 22.1; hj hj 18:01 16:15 Safety Checks: Personal items have been removed. Door is open. Visitors are hj present. 22:51 22:48 Safety Checks: Personal items have been removed. The door is open or patient has gc been placed in a hallway bed/chair. A family member and/or friend is present and encouraged to stay. Sitter present at this time. 23:52 23:30 Safety Checks: Personal items have been removed. The door is open or patient has gc been placed in a hallway bed/chair. A family member and/or friend is present and encouraged to stay. Sitter present at this time. 23:52 23:45 Safety Checks: Personal items have been removed. The door is open or patient has gc been placed in a hallway bed/chair. Sitter present at this time. 09/16 03:21 02:00 Reassessment: Patient agitated at this time, states "I'm going to go home, y'all lp1 don't want to help me anyways"; Patient yelling at nurse to pull out IV, nurse attempting to calm patient and inform of plan of care; lp1 03:24 02:30 Reassessment: Patient calm at this time; Continues to not want to undress and lp1 give belongings to staff lp1 04:18 02:00 Safety Checks: Personal items have been removed. The door is open or patient has gc been placed in a hallway bed/chair. Sitter present at this time. 04:19 02:00 Safety Checks: Personal items have been removed. The door is open or patient has gc been placed in a hallway bed/chair. A family member and/or friend is present and encouraged to stay. Sitter present at this time. 07:41 07:06 Safety checks: Items removed: yes. Door open/sign placed on door: yes. dh3 Family/friend present: no. Sitter present: Yes. gm 07:42 07:21 Safety checks: Items removed: yes. Door open/sign placed on door: yes. dh3 Family/friend present: no. Sitter present: Yes. gm 11:11 10:23 BP 153 / 94; Pulse 86bpm; Resp 16bpm; Pulse Ox 99% RA; Pain 0/10; dh3 dh3 12:36 12:32 Safety checks: Items removed: yes. Door open/sign placed on door: yes. jp3 Family/friend present: yes. Family/friends encouraged to stay with patient. Sitter present: Yes. [facility] 13:30 13:24 Safety checks: Items removed: yes. Door open/sign placed on door: yes. jp3 Family/friend present: no. Sitter present: Yes. gm
[2018-09-16] MEDS ORDERED: HYDROCODONE/APAP 7.5/325 MG TAB ONE ×2 (09:28→17:04)
[2018-09-16] MEDS ORDERED: FENTANYL 50 MCG/PATCH TD ONE (20:03)
[2018-09-16 22:26] VITALS: TEMP 98.8
[2018-09-16 22:32] VITALS: BP 154/96; O2SAT 98
== END 2018-09-16 20:04 | disposition home or self-care (01) ==
LOC: ER 15:51
DX: F33.9 Major depressive disorder, recurrent, unspecified (principal); G89.29 Other chronic pain; E11.9 Type 2 diabetes mellitus without complications; Z72.0 Tobacco use
CPT/HCPCS: 36415; 80048; 80076; 80307; 80320; 80329; 81003; 82962; 85025; 85610; 85730; 93005; 96374; 99285

== ENCOUNTER 2019-07-10 07:13 | Inpatient (IN) | payer SELFPAY ==
--- OUTSIDE RECORDS SUMMARY | 2019-07-10 07:15 | XMS REPORT ---
:1970 [facility] Address [address] [place] [address] [place] [id number] Care Team Providers Name Role Phone Unavailable Unavailable Unavailable Problems This patient has no known problems. Allergies, Adverse Reactions, Alerts This patient has no known allergies or adverse reactions. Medications This patient has no known medications.
[2019-07-10] MEDS ORDERED: NA CHLORIDE 0.9% 3,000 ML ONE (07:33)
[2019-07-10] MEDS ORDERED: NOREPINEPHRINE 4mg/D5W 250mL 4 MG/250 ML BAG IV ONE ×2 (07:47→12:39)
[2019-07-10 08:09] LABS: Arterial Blood Carboxyhemoglob 1.2 % (0-1.5); Blood Gas Oxyhemoglobin 94.5 % (94-97); Blood O2 Saturation 96.6 % (92-98.5)
[2019-07-10 08:23] LABS: ALT/SGPT 73 U/L (12-78); AST/SGOT 118 U/L (15-37); Albumin 3.1 g/dL (3.4-5.0); Alkaline Phosphatase 151 U/L (45-117); BUN Blood Urea Nitrogen 27 mg/dL (7-18); Bicarbonate 20 mmol/L (21-32); Bilirubin Direct < 0.1 mg/dL (0-0.2); Bilirubin Total 0.2 mg/dL (0.2-1.0); CKMB Creatine Kinase MB 1.7 ng/mL (0.3-3.6); Creatine Phosphokinase 128 U/L (39-308); Lipase 58 U/L (73-393); Potassium 4.5 mmol/L (3.5-5.1); Protein, Total 6.6 g/dL (6.4-8.2); Sodium Level 139 mmol/L (136-145); Troponin (Emerg Dept Use Only) 0.03 ng/mL (0.0-0.045)
[2019-07-10 08:24] LABS: Absolute Lymphocytes (CBC) 4.9 K/uL (0.7-4.9); Basophils % 0.2 % (0-1.3); Hematocrit 37.9 % (39.6-49.0); Lymphocytes % 38.5 % (15.3-44.8); MPV 8.3 fL (7.6-11.3); RBC Red Blood Cell Count 3.88 M/uL (4.33-5.43)
[2019-07-10 08:32] LABS: Glucose Level 781 mg/dL (74-106)
[2019-07-10] MEDS ORDERED: INSULIN -REGULAR HUMAN 50 UNIT/0.5 ML ML ONE (08:43)
[2019-07-10 08:52] LABS: Protime INR 0.96
--- NOTE | 2019-07-10 08:52 | ER ---
Nurse's Notes [facility] Name: Manfred Ralph Age: 48 yrs Sex: Male : 1970 Arrival Date: 07/10/2019 Time: 07:15 Bed 4 Private MD: Diagnosis: CPR with spont return of circulation;Hyperglycemia, unspecified Presentation: 07/10 07:11 Acuity: PAUL 1 sv 07:11 Presenting complaint: EMS states: found in his front yard by son, who started CPR sv around 0644. Last seen well at 2200 last night. CPR continued by thumper by [facility]. 1st Epinephrine \T\ 0657, 2nd \T\ 0700, shocked \T\ 0700 (PEA), 3rd \T\ 0703, 4th \T\ 070 6, PEA \T\ 0707, ROSC \T\ 0708. Sodium bicarbonate \T\ 0651, IO LLE \T\ 0650, intubated with Padilla \T\ 0650. Transition of care: patient was not received from another setting of care. Onset of symptoms was July 10, 2019. Risk Assessment: Do you want to hurt yourself or someone else? Unable to obtain. Initial Sepsis Screen: Does the patient meet any 2 criteria? HR > 90 bpm. No. Patient's initial sepsis screen is negative. Does the patient have a suspected source of infection? No. Patient's initial sepsis screen is negative. Care prior to arrival: Oral intubation, CPR manually via thumper performed by bystander performed by EMS Medication(s) given: Epinephrine x4 and Sodium bicarbonate x1 IV initiated. IO LLE Glucose check: 450. 07:11 Method Of Arrival: EMS: [facility] sv Triage Assessment: 07:15 General: Appears ill, unkempt, Behavior is unresponsive. intubated. Pain: Unable to use sv pain scale. Does not appear to understand pain scale. Patient appears confused, FLACC scale score is 0 out of 10. Patient is intubated. EENT: Neuro: Level of Consciousness is obtunded, unresponsive, Oriented to none intubated. Cardiovascular: Rhythm is atrial fibrillation. Respiratory: Airway via oral intubation Respiratory effort is even, unlabored, Respiratory pattern is regular, symmetrical. GI: vomit noted on pt. Derm: Skin is pale, Wound noted right leg and left leg Bruising that is on right leg and left leg. Historical: - Allergies: 08:22 NKA; sv - PMHx: 08:22 ADD/ADHD; Arthritis; Cirrhosis; Diabetes - NIDDM; Hepatitis C; neuropathy; sv - Immunization history:: Adult Immunizations unknown. - Social history:: Smoking status: unknown. - Ebola Screening: : No symptoms or risks identified at this time. Screenin:30 Fall Risk No fall in past 12 months (0 pts). No secondary diagnosis (0 pts). IV access sv (20 points). Ambulatory Aid- None/Bed Rest/Nurse Assist (0 pts). Gait- Impaired (20 pts.). Mental Status- Overestimates/Forgets Limitations (15 pts.). Total Hernandez Fall Scale indicates High Risk Score (45 or more points). Fall prevention measures have been instituted. Side Rails Up X 2 Placed Close to Nursing Station Frequent Obs/Assessments Occuring As available patient and family educated on Fall Prevention Program and Strategies. 08:22 Abuse screen: unknown. Nutritional screening: unknown. Tuberculosis screening: unknown. sv Assessment: 07:15 Reassessment: Pt extubated by Dr Vital \T\ 0715 and reintubated \T\ 0716. sv 07:45 Reassessment: Patient appears in no apparent distress at this time. No changes from sv previously documented assessment. Pt remains intubated. 08:15 Reassessment: Patient appears in no apparent distress at this time. No changes from sv previously documented assessment. 08:45 Reassessment: Patient appears in no apparent distress at this time. No changes from sv previously documented assessment. Pt remains intubated. 09:30 Reassessment: Patient appears in no apparent distress at this time. No changes from sv previously documented assessment. Pt remains intubated. 10:30 Reassessment: Patient appears in no apparent distress at this time. No changes from sv previously documented assessment. Pt remains intubated. 11:30 Reassessment: Patient appears in no apparent distress at this time. Patient and/or sv family updated on plan of care and expected duration. Pain level reassessed. Informed Dr Vital of the updated status on vitals, FIO2 \T\ 100%, O2 sat at 92%, and change in Levophed rate. 11:35 Reassessment: Dr Vital and myself at the bedside with pt's spouse (common law sv marriage) regarding what the pt's wishes are with code status. Spouse stated that the pt's mother is on her way about 6 hours away and the pt's sisters went to [place] to pick their mother up from the bus station. 11:52 Reassessment: Patient appears in no apparent distress at this time. No changes from sv previously documented assessment. Pt remains intubated, no gag reflex. Vital Signs: 07:14 BP 126 / 78; Pulse 92; Resp 16; Pulse Ox 98% on ETT ambu; sv 07:30 BP 63 / 48; Pulse 92; Resp 16; Pulse Ox 98% on ETT ambu; sv 07:38 BP 57 / 44; Pulse 81; Resp 17; Pulse Ox 97% on ETT vent; sv 07:49 BP 55 / 41; Pulse 76; Resp 16; Temp 97.4(C); Pulse Ox 98% on ETT vent; sv 07:55 BP 50 / 38; Pulse 72; Resp 16; Pulse Ox 96% on ETT vent; sv 07:58 BP 83 / 54; Pulse 78; Resp 18; Pulse Ox 96% on ETT vent; sv 08:05 BP 79 / 60; Pulse 79; Resp 18; Temp 96.9(C); Pulse Ox 100% on ETT vent; sv 08:15 BP 89 / 60; Pulse 80; Resp 16; Pulse Ox 100% on 35% FiO2 ETT vent; sv 08:20 BP 86 / 57; Pulse 80; Resp 18; Temp 96.2(C); Pulse Ox 95% on 35% FiO2 ETT vent; sv 08:25 BP 83 / 61; Pulse 81; Resp 18; Temp 96(C); Pulse Ox 100% on ETT vent; sv 08:40 BP 98 / 68; Pulse 83; Resp 16; Pulse Ox 98% on ETT vent; sv 08:45 BP 115 / 63; Pulse 83; Resp 15; Temp 95.5(C); Pulse Ox 100% on 85% FiO2 ETT vent; sv 08:55 BP 89 / 62; Pulse 83; Resp 18; Temp 95.5(C); Pulse Ox 97% on 85% FiO2 ETT vent; sv 08:57 Weight 99.79 kg; sv 09:00 BP 94 / 63; Pulse 87; Resp 18; Temp 95.4(C); Pulse Ox 98% on 85% FiO2 ETT vent; sv 09:20 BP 116 / 89; Pulse 95; Resp 18; Pulse Ox 98% on 85% FiO2 ETT vent; sv 09:30 BP 121 / 66; Pulse 98; Resp 18; Temp 95.2(C); Pulse Ox 96% on 85% FiO2 ETT vent; sv 09:40 BP 113 / 67; Pulse 100; Resp 18; Pulse Ox 94% on ETT vent; sv 10:00 BP 115 / 75; Pulse 104; Resp 18; Pulse Ox 93% on ETT vent; sv 10:14 BP 125 / 106; Pulse 112; Resp 18; Temp 95.5(C); Pulse Ox 95% on ETT vent; sv 10:30 BP 106 / 75; Pulse 116; Resp 18; Pulse Ox 94% on 100% FiO2 ETT vent; sv 11:00 BP 107 / 77; Pulse 117; Resp 18; Pulse Ox 93% on 100% FiO2 ETT vent; sv 11:20 BP 87 / 65; Pulse 121; Resp 18; Pulse Ox 88% on 100% FiO2 ETT vent; sv 11:30 BP 97 / 71; Pulse 128; Resp 18; Temp 97.3(C); Pulse Ox 93% on 100% FiO2 ETT vent; sv 11:50 BP 88 / 64; Pulse 130 MON; Resp 18; Pulse Ox 94% on 100% FiO2 ETT vent; sv 12:00 BP 78 / 57; Pulse 125; Resp 19; Temp 97.9(C); Pulse Ox 96% on 100% FiO2 ETT vent; sv 12:10 BP 87 / 65; Pulse 121; Resp 18; Pulse Ox 94% on 100% FiO2 ETT vent; sv 12:20 BP 81 / 59; Pulse 120; Resp 18; Pulse Ox 94% on 100% FiO2 ETT vent; sv 12:30 BP 71 / 49; Pulse 118; Resp 18; Temp 98.4(C); Pulse Ox 94% on 100% FiO2 ETT vent; sv 12:40 BP 79 / 44; Pulse 116; Resp 18; Pulse Ox 93% on 100% FiO2 ETT vent; sv 12:50 BP 69 / 55; Pulse 110; Resp 18; Pulse Ox 94% on 100% FiO2 ETT vent; sv 13:00 BP 85 / 69; Pulse 112; Resp 18; Temp 98.6(C); Pulse Ox 91% on 100% FiO2 ETT vent; sv 13:10 BP 69 / 52; Pulse 109; Resp 18; Pulse Ox 89% on 100% FiO2 ETT vent; sv 13:20 BP 71 / 56; Pulse 110; Resp 18; Pulse Ox 89% on 100% FiO2 ETT vent; sv 13:29 BP 81 / 59; Pulse 110; Resp 18; Temp 98.7(C); Pulse Ox 91% on 100% FiO2 ETT vent; sv 13:40 BP 91 / 74; Pulse 114; Resp 18; Pulse Ox 93% on 100% FiO2 ETT vent; sv 13:50 BP 102 / 68; Pulse 114; Resp 18; Pulse Ox 93% on 100% FiO2 ETT vent; sv 11:50 Sinus tachycardia sv 07:[address] Vital of vitals, NS 2L bolus to be given. sv ED Course: 07:15 Patient arrived in ED. fc 07:15 Placed in gown. Bed in low position. classroom monitor on. Pulse ox on. NIBP on. sv 07:16 Assisted provider with intubation using 7.5 mm ETT via oral route. ET tube secured at sv 22cm at the lips. Set up intubation tray. Intubated by Live Vital MD Placement verified by CO2 detector w/ + color change, auscultating bilateral breath sounds. Initial lab(s) drawn, by ED staff, sent to lab. Inserted saline lock: 20 gauge in right antecubital area, using aseptic technique. ,using aseptic technique. done by Ines SAUNDERS Blood collected. 07:20 NGT: inserted 16 Fr. via left nare. other done by Meera SAUNDERS verified placement of air sv over stomach, verified return of gastric contents, to intermittent suction. Returned gastric contents. Inserted saline lock: 18 gauge in right forearm, using aseptic technique. ,using aseptic technique. done by Ines SAUNDERS. 07:20 Arm band placed on. sv 07:20 Patient has correct armband on for positive identification. sv 07:21 Blanca Boyd, NICKY is Primary Nurse. sv 07:24 Live Vital MD is Attending Physician. kdr 07:24 EKG done, by ED staff, reviewed by Live Vital MD. sv 07:26 Triage completed. sv 07:30 Perdomo cath inserted, using sterile technique, 16 Fr., by signing teacher, balloon inflated, to sv gravity drainage, urine specimen collected. other Criticore perdomo returned clear yellow urine. 07:50 Assisted provider with central line placement. Set up central line tray. Triple lumen sv line placed in right femoral. Line placed by Live Vital MD Placement verified by blood return, Dressed with Tape, Tegaderm, Patient tolerated well. Before procedure, did Practitioner(s) obtain informed consent? No. Patient \T\ family education about procedure, CLABSI prevention and S/S of infection? No. Time-out/Briefing performed prior to start of procedure? Yes. Was handwashing/sanitizing done immediately prior to procedure? Yes. Was patient positioned to in a way to prevent air embolism? Yes. Was procedure site sterilized? Yes, with chlorhexidine. Was the site allowed to dry? Yes. Was local anesthetic and/or sedation utilized? Yes. During the procedure, did the Practitioner(s) maintain a sterile field? Yes. Were unused ports clamped during insertion? Yes. Was a 2nd qualified MD obtained after 3 unsuccessful insertion attempts? Yes. Was blood aspirated from each lumen? Yes. After the procedure, did the Practitioner(s) clean the site and apply a sterile dressing? Yes. 08:08 Urine Dipstick--Ancillary (enter results) Sent. sv 08:08 Lab(s) recollected, by me, sent to lab. sv 08:17 Chest Single View XRAY In Process Unspecified. EDMS 08:32 Notified ED physician of a critical lab result(s). Glucose 781. hb 08:43 Patient moved back from CT. sv 08:50 Lavell Perez is Hospitalizing Provider. kdr 08:52 CT Head Brain wo Cont In Process Unspecified. EDMS 10:38 Awaiting bed assignment. sv 11:30 EKG done, by ED staff, reviewed by Live Vital MD. mb4 13:45 Patient admitted, IV remains in place. intact. sv Restraints: 07:30 Non-Violent Restraint: Order obtained. Initiated on July 10, 2019 at 07:30 Unable sv to provide Restraint education. pt intubated and unresponsive. Actions/Behavior observed: Confused/disoriented, has difficulty remembering/follow instructions, has impaired decision making, has decreased level of consciousness, unable to follow instructions, Less restrictive alternatives attempted: decrease environmental stimuli, 1:1 patient care, family at bedside, lines/tubes covered, eliminated unnecessary lines/tubes, Alternative interventions: Ineffective. Clinical justification for use: airway protection, line protection, patient safety, Mental status: patient asleep, Cognition: Unable to assess. Circulation: Within defined parameters (based on Cardiovascular assessment) Skin integrity: Within defined parameters (based on Integumentary assessment) Signs of injury related to restraint: No injuries noted. Range of Motion (ROM): patient asleep. Hydration/Food: patient asleep. Elimination/Hygiene: with urinary catheter, Restraint status: Side rails up x 4 Started. Soft wrist restraint (Right) Started. Soft wrist restraint (Left) Started. Criteria to discontinue Restraint not met. Restraint continued. 09:30 Non-Violent Restraint: Unable to provide Restraint education. pt intubated and sv unresponsive. Actions/Behavior observed: Confused/disoriented, has difficulty remembering/follow instructions, has impaired decision making, has decreased level of consciousness, unable to follow instructions, Less restrictive alternatives attempted: decrease environmental stimuli, 1:1 patient care, family at bedside, lines/tubes covered, eliminated unnecessary lines/tubes, Alternative interventions: Ineffective. Clinical justification for use: airway protection, line protection, patient safety, Mental status: patient asleep, Cognition: Unable to assess. Circulation: Within defined parameters (based on Cardiovascular assessment) Skin integrity: Within defined parameters (based on Integumentary assessment) Signs of injury related to restraint: No injuries noted. Range of Motion (ROM): patient asleep. Hydration/Food: patient asleep. Elimination/Hygiene: with urinary catheter, Restraint status: Side rails up x 4 Continued. Soft wrist restraint (Right) Continued. Soft wrist restraint (Left) Continued. Criteria to discontinue Restraint not met. Restraint continued. 11:30 Non-Violent Restraint: Unable to provide Restraint education. pt intubated. sv Actions/Behavior observed: Confused/disoriented, has difficulty remembering/follow instructions, has impaired decision making, has decreased level of consciousness, unable to follow instructions, Less restrictive alternatives attempted: decrease environmental stimuli, 1:1 patient care, family at bedside, lines/tubes covered, eliminated unnecessary lines/tubes, Alternative interventions: Ineffective. Clinical justification for use: airway protection, line protection, patient safety, Mental status: patient asleep, Cognition: Unable to assess. Circulation: Within defined parameters (based on Cardiovascular assessment) Skin integrity: Within defined parameters (based on Integumentary assessment) Signs of injury related to restraint: No injuries noted. Range of Motion (ROM): patient asleep. Hydration/Food: patient asleep. Elimination/Hygiene: with urinary catheter, Restraint status: Side rails up x 4 Continued. Soft wrist restraint (Right) Continued. Soft wrist restraint (Left) Continued. Criteria to discontinue Restraint not met. Restraint continued. 13:30 Non-Violent Restraint: Unable to provide Restraint education. pt intubated. sv Actions/Behavior observed: Confused/disoriented, has difficulty remembering/follow instructions, has impaired decision making, has decreased level of consciousness, unable to follow instructions, Less restrictive alternatives attempted: decrease environmental stimuli, 1:1 patient care, family at bedside, lines/tubes covered, eliminated unnecessary lines/tubes, Alternative interventions: Ineffective. Clinical justification for use: airway protection, line protection, patient safety, Mental status: patient asleep, Cognition: Unable to assess. Circulation: Within defined parameters (based on Cardiovascular assessment) Skin integrity: Within defined parameters (based on Integumentary assessment) Signs of injury related to restraint: No injuries noted. Range of Motion (ROM): patient asleep. Hydration/Food: patient asleep. Elimination/Hygiene: with urinary catheter, Restraint status: Side rails up x 4 Continued. Soft wrist restraint (Right) Continued. Soft wrist restraint (Left) Continued. Criteria to discontinue Restraint not met. Restraint continued. Administered Medications: 07:26 Drug: NS 0.9% 1000 ml Route: IV; Rate: 1000 ml; Site: right antecubital; sv 08:24 Follow up: Response: No adverse reaction; IV Status: Completed infusion; IV Intake: sv 1000ml 07:26 Drug: NS 0.9% 1000 ml Route: IV; Rate: 1000 ml; Site: right forearm; sv 08:24 Follow up: Response: No adverse reaction; IV Status: Completed infusion; IV Intake: sv 1000ml 07:54 Drug: Levophed (4 mg/250 mL D5W 4 mcg/min {Note: started at 10 mcg/min.} Route: IV; sv Rate: calculated rate; Site: right femoral; 08:19 Follow up: Rate change 12 calculated rate sv 10:13 Follow up: Rate change 10 calculated rate sv 11:38 Follow up: Rate change 12 calculated rate sv 11:51 Follow up: Rate change 14 calculated rate sv 12:01 Follow up: Rate change 17 calculated rate sv 12:10 Follow up: Rate change 20 calculated rate sv 12:39 Follow up: Rate change 22 calculated rate sv 12:45 Follow up: Rate change 25 calculated rate sv 13:06 Follow up: Rate change 27 calculated rate sv 13:15 Follow up: Rate change 30 calculated rate sv 08:30 Drug: NS 0.9% 1000 ml Route: IV; Rate: 150 ml/hr; Site: right femoral; sv 08:46 Drug: Insulin Regular Human 10 units {Co-Signature: tw2 (Ines Arndt RN).} Route: IVP; sv Site: right antecubital; 09:23 Follow up: Response: No adverse reaction; No change in condition sv 09:18 Drug: Insulin Drip - (Insulin Regular Human 100 units, NS 0.9% 100 ml) {Co-Signature: sv tw2 (Ines Arndt RN).} {Note: started at 10 units/hr.} Route: IV; Rate: calculated rate; Site: right femoral; 11:51 Follow up: Rate change 9 calculated rate sv 09:19 Drug: Sodium Bicarbonate 2 amp Route: IVP; Site: right femoral; sv 09:23 Follow up: Response: No adverse reaction sv 09:19 CANCELLED (Physician Discretion): NS 0.9% 1000 ml IV at 125 ml/hr continuous sv 11:18 Drug: Calcium Chloride 1 grams Route: IVP; Site: right femoral; sv 11:19 Follow up: Response: No adverse reaction sv 11:19 Drug: Albuterol 2.5 mg Route: Inhalation; sv 11:19 Drug: Albuterol 2.5 mg Route: Inhalation; sv 11:19 Drug: Albuterol 2.5 mg Route: Inhalation; sv 12:30 Drug: Kayexalate 30 grams {Note: down NGT.} Route: PO; sv 12:42 Follow up: Response: No adverse reaction sv 13:29 Drug: Rocephin - (cefTRIAXone) 2 grams Route: IVPB; Infused Over: 30 mins; Site: right sv femoral; 13:29 Drug: NS 0.9% 1000 ml Route: IV; Rate: 1000 ml; Site: right femoral; sv 13:30 Drug: Pankaj-Synephrine 100 mcg/min Route: IV; Rate: calculated rate; Site: right femoral; sv Point of Care Testing: Blood Glucose: 07:17 Blood Glucose: High (>450 mg/dL); sv 09:18 Blood Glucose: High (>450 mg/dL); sv 10:14 Blood Glucose: High (>450 mg/dL); sv 11:20 Blood Glucose: 359 mg/dL; sv 12:25 Blood Glucose: 343 mg/dL; sv 10:14 >461 sv Ranges: Intake: 08:24 IV: 1000ml; Total: 1000ml. sv 08:24 IV: 1000ml; Total: 2000ml. sv Ventilator: 09:00 Fi02: 85%; Rate: 18min; T.V.: 550ml; Peep: 5cm; Mode: CMV; ET tube: 7.5 mm (Oral); sv 10:30 Fi02: 100%; Rate: 18min; T.V.: 550ml; Peep: 5cm; Mode: CMV; sv Outcome: 08:52 Decision to Hospitalize by Provider. kdr 13:45 Admitted to ICU accompanied by nurse, accompanied by tech, family with patient, via sv stretcher, room 7, with oxygen, on monitor, with chart, Report called to Pattie SAUNDERS 13:45 Condition: stable 13:45 Instructed on the need for admit. 14:24 Patient left the ED. Signatures: Dispatcher [employer] Blanca Hough RN RN Live Vital MD MD kdr Chretien, Felicia, RN RN Meera Ramirez RN RN Chelle Ramirez mb4 Ines Arndt RN tw2 Corrections: (The following items were deleted from the chart) 07:59 07:54 Levophed (4 mg/250 mL D5W 4 mcg/min IV at calculated rate in right femoral sv sv 13:44 07:15 Cardiovascular: Rhythm is sinus rhythm sv sv
--- NOTE | 2019-07-10 08:53 | EDPHYS ---
Physician Documentation [facility] Name: Manfred Ralph Age: 48 yrs Sex: Male : 1970 Arrival Date: 07/10/2019 Time: 07:15 Bed 4 Private MD: ED Physician Live Vital HPI: 07/10 08:35 This 48 yrs old Male presents to ER via Unassigned with complaints of kdr Unresponsive, CPR - w/ ROSC. 08:35 Preceding the arrest, the patient was found down by family. The arrest occurred at [facility] home. Front steps/yard. Pre-hospital course: The arrest was not witnessed by others. Bystanders at the scene performed CPR. EMS care prior to arrival: initiation of ACLS, oxygen, by BVM to assist ventilations. backboard, Time elapsed prior to ACLS is unknown. ACLS has been in progress for 30 minutes. ACLS details: Initial rhythm was PEA. The presenting rhythm is normal sinus rhythm. Airway: LMA, Medications given by EMS prior to arrival - Epinephrine IV x 4 doses, Defibrillated X 1, Response to therapy: return of rhythm, return of pulse. The patient has not experienced similar symptoms in the past. It is unknown whether or not the patient has recently seen a physician. Son reports that the patient was found down on the front steps. It is unknown how long he had been there. He was last seen by between midnight and 1:00 AM. It is unknown how long he was down outside. Historical: - Allergies: 08:22 NKA; sv - PMHx: 08:22 ADD/ADHD; Arthritis; Cirrhosis; Diabetes - NIDDM; Hepatitis C; neuropathy; sv - Immunization history:: Adult Immunizations unknown. - Social history:: Smoking status: unknown. - Ebola Screening: : No symptoms or risks identified at this time. ROS: 08:35 Constitutional: The patient is unresponisve s/p CPR kdr 08:35 Unable to obtain ROS due to comatose state, patient is on ventilator. Exam: 08:35 Constitutional: This is a well developed, well nourished patient who is awake, alert, kdr and in no acute distress. Head/Face: Normocephalic, atraumatic. ENT: Nares patent. No nasal discharge, no septal abnormalities noted. Tympanic membranes are normal and external auditory canals are clear. Oropharynx with no redness, swelling, or masses, exudates, or evidence of obstruction, uvula midline. Mucous membranes moist. Neck: Trachea midline, no thyromegaly or masses palpated, and no cervical lymphadenopathy. Supple, full range of motion without nuchal rigidity, or vertebral point tenderness. No Meningismus. Chest/axilla: Normal chest wall appearance and motion. Nontender with no deformity. No lesions are appreciated. Cardiovascular: Regular rate and rhythm with a normal S1 and S2. No gallops, murmurs, or rubs. Normal PMI, no JVD. No pulse deficits. Back: No spinal tenderness. No costovertebral tenderness. Full range of motion. Skin: Warm, dry with normal turgor. Normal color with no rashes, no lesions, and no evidence of cellulitis. 08:35 Eyes: Pupils: are fixed and dilated. Vital Signs: 07:14 BP 126 / 78; Pulse 92; Resp 16; Pulse Ox 98% on ETT ambu; sv 07:30 BP 63 / 48; Pulse 92; Resp 16; Pulse Ox 98% on ETT ambu; sv 07:38 BP 57 / 44; Pulse 81; Resp 17; Pulse Ox 97% on ETT vent; sv 07:49 BP 55 / 41; Pulse 76; Resp 16; Temp 97.4(C); Pulse Ox 98% on ETT vent; sv 07:55 BP 50 / 38; Pulse 72; Resp 16; Pulse Ox 96% on ETT vent; sv 07:58 BP 83 / 54; Pulse 78; Resp 18; Pulse Ox 96% on ETT vent; sv 08:05 BP 79 / 60; Pulse 79; Resp 18; Temp 96.9(C); Pulse Ox 100% on ETT vent; sv 08:15 BP 89 / 60; Pulse 80; Resp 16; Pulse Ox 100% on 35% FiO2 ETT vent; sv 08:20 BP 86 / 57; Pulse 80; Resp 18; Temp 96.2(C); Pulse Ox 95% on 35% FiO2 ETT vent; sv 08:25 BP 83 / 61; Pulse 81; Resp 18; Temp 96(C); Pulse Ox 100% on ETT vent; sv 08:40 BP 98 / 68; Pulse 83; Resp 16; Pulse Ox 98% on ETT vent; sv 08:45 BP 115 / 63; Pulse 83; Resp 15; Temp 95.5(C); Pulse Ox 100% on 85% FiO2 ETT vent; sv 08:55 BP 89 / 62; Pulse 83; Resp 18; Temp 95.5(C); Pulse Ox 97% on 85% FiO2 ETT vent; sv 08:57 Weight 99.79 kg; sv 09:00 BP 94 / 63; Pulse 87; Resp 18; Temp 95.4(C); Pulse Ox 98% on 85% FiO2 ETT vent; sv 09:20 BP 116 / 89; Pulse 95; Resp 18; Pulse Ox 98% on 85% FiO2 ETT vent; sv 09:30 BP 121 / 66; Pulse 98; Resp 18; Temp 95.2(C); Pulse Ox 96% on 85% FiO2 ETT vent; sv 09:40 BP 113 / 67; Pulse 100; Resp 18; Pulse Ox 94% on ETT vent; sv 10:00 BP 115 / 75; Pulse 104; Resp 18; Pulse Ox 93% on ETT vent; sv 10:14 BP 125 / 106; Pulse 112; Resp 18; Temp 95.5(C); Pulse Ox 95% on ETT vent; sv 10:30 BP 106 / 75; Pulse 116; Resp 18; Pulse Ox 94% on 100% FiO2 ETT vent; sv 11:00 BP 107 / 77; Pulse 117; Resp 18; Pulse Ox 93% on 100% FiO2 ETT vent; sv 11:20 BP 87 / 65; Pulse 121; Resp 18; Pulse Ox 88% on 100% FiO2 ETT vent; sv 11:30 BP 97 / 71; Pulse 128; Resp 18; Temp 97.3(C); Pulse Ox 93% on 100% FiO2 ETT vent; sv 11:50 BP 88 / 64; Pulse 130 MON; Resp 18; Pulse Ox 94% on 100% FiO2 ETT vent; sv 12:00 BP 78 / 57; Pulse 125; Resp 19; Temp 97.9(C); Pulse Ox 96% on 100% FiO2 ETT vent; sv 12:10 BP 87 / 65; Pulse 121; Resp 18; Pulse Ox 94% on 100% FiO2 ETT vent; sv 12:20 BP 81 / 59; Pulse 120; Resp 18; Pulse Ox 94% on 100% FiO2 ETT vent; sv 12:30 BP 71 / 49; Pulse 118; Resp 18; Temp 98.4(C); Pulse Ox 94% on 100% FiO2 ETT vent; sv 12:40 BP 79 / 44; Pulse 116; Resp 18; Pulse Ox 93% on 100% FiO2 ETT vent; sv 12:50 BP 69 / 55; Pulse 110; Resp 18; Pulse Ox 94% on 100% FiO2 ETT vent; sv 13:00 BP 85 / 69; Pulse 112; Resp 18; Temp 98.6(C); Pulse Ox 91% on 100% FiO2 ETT vent; sv 13:10 BP 69 / 52; Pulse 109; Resp 18; Pulse Ox 89% on 100% FiO2 ETT vent; sv 13:20 BP 71 / 56; Pulse 110; Resp 18; Pulse Ox 89% on 100% FiO2 ETT vent; sv 13:29 BP 81 / 59; Pulse 110; Resp 18; Temp 98.7(C); Pulse Ox 91% on 100% FiO2 ETT vent; sv 13:40 BP 91 / 74; Pulse 114; Resp 18; Pulse Ox 93% on 100% FiO2 ETT vent; sv 13:50 BP 102 / 68; Pulse 114; Resp 18; Pulse Ox 93% on 100% FiO2 ETT vent; sv 11:50 Sinus tachycardia sv 07:[address] Vital of vitals, NS 2L bolus to be given. sv Ventilator: 09:00 Fi02: 85%; Rate: 18min; T.V.: 550ml; Peep: 5cm; Mode: CMV; ET tube: 7.5 mm (Oral); sv 10:30 Fi02: 100%; Rate: 18min; T.V.: 550ml; Peep: 5cm; Mode: CMV; sv Procedures: 08:35 Intubation: Ventilated with 100% NRB prior to procedure. O2 saturation prior to kdr procedure was 85 %. Intubated orally using # 3 Betty blade with 7.5 mm ETT. Successful on second attempt. Ventilated with Ambu bag. ventilator. Tube secured with ETT teague at center of mouth measured 23 cm at lip. Placement verified by CXR, CO2 detector with (+) color change, auscultating bilateral breath sounds, O2 saturation after procedure was 94 %. Patient tolerated well. Central Line: the site was prepped with Betadine, a triple lumen catheter was inserted, in the right femoral vein, in 1 attempts. placement was verified, by blood return, the site was dressed with Tegaderm, using sterile technique, the patient tolerated the procedure, well. MDM: 08:35 Data reviewed: vital signs, nurses notes, lab test result(s), EKG, radiologic studies. kdr Counseling: I had a detailed discussion with the patient and/or guardian regarding: the historical points, exam findings, and any diagnostic results supporting the discharge/admit diagnosis, lab results, radiology results, the need for further work-up and treatment in the hospital. 08:52 Patient medically screened. [facility] 07/10 07:25 Order name: Basic Metabolic Panel; Complete Time: 08:53 kdr 07/10 07:25 Order name: Blood Culture Adult (2) kdr 07/10 07:25 Order name: CBC with Diff; Complete Time: 08:53 kdr 07/10 07:25 Order name: Ckmb; Complete Time: 08:53 kdr 07/10 07:25 Order name: CPK; Complete Time: 08:53 kdr 07/10 07:25 Order name: Lactate; Complete Time: 10:06 kdr 07/10 07:25 Order name: LFT's; Complete Time: 08:53 kdr 07/10 07:25 Order name: Lipase; Complete Time: 08:53 kdr 07/10 07:25 Order name: Procalcitonin; Complete Time: 10:06 kdr 07/10 07:25 Order name: Protime (+inr); Complete Time: 09:09 kdr 07/10 07:25 Order name: Ptt, Activated; Complete Time: 09:09 kdr 07/10 07:25 Order name: Troponin (emerg Dept Use Only); Complete Time: 08:53 kdr 07/10 07:25 Order name: Urine Microscopic Only; Complete Time: 10:06 kdr 07/10 07:27 Order name: Type And Screen; Complete Time: 08:53 sv 07/10 07:27 Order name: AMMONIA; Complete Time: 10:06 sv 07/10 07:28 Order name: UDS; Complete Time: 09:09 sv 07/10 07:42 Order name: ABG sv 07/10 07:42 Order name: Acetaminophen; Complete Time: 08:53 sv 07/10 07:42 Order name: ETOH Level; Complete Time: 10:06 sv 07/10 07:42 Order name: Salicylate; Complete Time: 08:53 sv 07/10 07:51 Order name: Urine Dipstick--Ancillary (enter results) eb 07/10 07:52 Order name: Urine Dipstick-Ancillary; Complete Time: 12:43 EDMS 07/10 09:18 Order name: Glucose; Complete Time: 11:08 sv 07/10 09:23 Order name: glucometer results - FOR PT WITH NO ID sv 07/10 09:24 Order name: Glucose, Ancillary Testing; Complete Time: 10:06 EDMS 07/10 09:31 Order name: Urine Culture EDMS 07/10 09:44 Order name: Ketone, Serum; Complete Time: 11:08 kdr 07/10 10:12 Order name: Chem 7; Complete Time: 11:08 sv 07/10 10:12 Order name: ABG; Complete Time: 11:08 sv 07/10 10:13 Order name: Glucose, Ancillary Testing; Complete Time: 11:08 EDMS 07/10 07:25 Order name: Chest Single View XRAY; Complete Time: 12:43 kdr 07/10 07:25 Order name: Accucheck; Complete Time: 07:28 kdr 07/10 07:25 Order name: Cardiac monitoring; Complete Time: 07:28 kdr 07/10 07:25 Order name: EKG - Nurse/Tech; Complete Time: 07:28 kdr 07/10 07:25 Order name: IV Saline Lock - Large Bore; Complete Time: 07:28 kdr 07/10 07:25 Order name: Labs collected and sent; Complete Time: 07:28 kdr 07/10 07:25 Order name: O2 Per Protocol; Complete Time: 07:28 kdr 07/10 07:25 Order name: O2 Sat Monitoring; Complete Time: 07:28 kdr 07/10 07:25 Order name: Urine Dipstick-Ancillary (obtain specimen); Complete Time: 07:43 kdr 07/10 07:25 Order name: CT Head Brain wo Cont; Complete Time: 09:09 kdr 07/10 07:42 Order name: EKG; Complete Time: 07:44 sv 07/10 07:42 Order name: IV Saline Lock; Complete Time: 07:43 sv 07/10 11:19 Order name: EKG; Complete Time: 11:21 sv 07/10 11:31 Order name: Glucose, Ancillary Testing; Complete Time: 12:43 EDMS 07/10 11:37 Order name: Lactate; Complete Time: 12:43 hb 07/10 12:38 Order name: Glucose, Ancillary Testing; Complete Time: 12:43 EDMS 07/10 07:57 Order name: Labs - recollect needed; Complete Time: 08:08 eb 07/10 10:06 Order name: EKG - Nurse/Tech; Complete Time: 11:40 kdr Administered Medications: 07:26 Drug: NS 0.9% 1000 ml Route: IV; Rate: 1000 ml; Site: right antecubital; sv 08:24 Follow up: Response: No adverse reaction; IV Status: Completed infusion; IV Intake: sv 1000ml 07:26 Drug: NS 0.9% 1000 ml Route: IV; Rate: 1000 ml; Site: right forearm; sv 08:24 Follow up: Response: No adverse reaction; IV Status: Completed infusion; IV Intake: sv 1000ml 07:54 Drug: Levophed (4 mg/250 mL D5W 4 mcg/min {Note: started at 10 mcg/min.} Route: IV; sv Rate: calculated rate; Site: right femoral; 08:19 Follow up: Rate change 12 calculated rate sv 10:13 Follow up: Rate change 10 calculated rate sv 11:38 Follow up: Rate change 12 calculated rate sv 11:51 Follow up: Rate change 14 calculated rate sv 12:01 Follow up: Rate change 17 calculated rate sv 12:10 Follow up: Rate change 20 calculated rate sv 12:39 Follow up: Rate change 22 calculated rate sv 12:45 Follow up: Rate change 25 calculated rate sv 13:06 Follow up: Rate change 27 calculated rate sv 13:15 Follow up: Rate change 30 calculated rate sv 08:30 Drug: NS 0.9% 1000 ml Route: IV; Rate: 150 ml/hr; Site: right femoral; sv 08:46 Drug: Insulin Regular Human 10 units {Co-Signature: tw2 (Ines Arndt RN).} Route: IVP; sv Site: right antecubital; 09:23 Follow up: Response: No adverse reaction; No change in condition sv 09:18 Drug: Insulin Drip - (Insulin Regular Human 100 units, NS 0.9% 100 ml) {Co-Signature: sv tw2 (Ines Arndt RN).} {Note: started at 10 units/hr.} Route: IV; Rate: calculated rate; Site: right femoral; 11:51 Follow up: Rate change 9 calculated rate sv 09:19 Drug: Sodium Bicarbonate 2 amp Route: IVP; Site: right femoral; sv 09:23 Follow up: Response: No adverse reaction sv 09:19 CANCELLED (Physician Discretion): NS 0.9% 1000 ml IV at 125 ml/hr continuous sv 11:18 Drug: Calcium Chloride 1 grams Route: IVP; Site: right femoral; sv 11:19 Follow up: Response: No adverse reaction sv 11:19 Drug: Albuterol 2.5 mg Route: Inhalation; sv 11:19 Drug: Albuterol 2.5 mg Route: Inhalation; sv 11:19 Drug: Albuterol 2.5 mg Route: Inhalation; sv 12:30 Drug: Kayexalate 30 grams {Note: down NGT.} Route: PO; sv 12:42 Follow up: Response: No adverse reaction sv 13:29 Drug: Rocephin - (cefTRIAXone) 2 grams Route: IVPB; Infused Over: 30 mins; Site: right sv femoral; 13:29 Drug: NS 0.9% 1000 ml Route: IV; Rate: 1000 ml; Site: right femoral; sv 13:30 Drug: Pankaj-Synephrine 100 mcg/min Route: IV; Rate: calculated rate; Site: right femoral; sv Point of Care Testing: Blood Glucose: 07:17 Blood Glucose: High (>450 mg/dL); sv 09:18 Blood Glucose: High (>450 mg/dL); sv 10:14 Blood Glucose: High (>450 mg/dL); sv 11:20 Blood Glucose: 359 mg/dL; sv 12:25 Blood Glucose: 343 mg/dL; sv 10:14 >461 sv Ranges: Critical Glucose Levels:Adult <50 mg/dl or >400 mg/dl <40 mg/dl or >180 mg/dl Disposition: 13:45 Critical Care:. kdr Disposition: 07/10/19 08:52 Hospitalization ordered by Lavell Perez for Inpatient Admission. Preliminary diagnosis are CPR with spont return of circulation, Hyperglycemia, unspecified. - Bed requested for Intensive Care Unit. - Status is Inpatient Admission. hb - Condition is Critical. - Problem is new. - Symptoms have improved. UTI on Admission? No Critical care time excluding procedures: 13:45 Critical care time: Bedside Care: 40 minutes, Consultation: 14 minutes, Family kdr Intervention: 15 minutes. Total time: 69 minutes Signatures: Dispatcher [employer] Blanca Hough RN NICKY Padmini Poole RN Live Duran MD MD kdr Solis, Maria ms RamirezMeera RN RN Ines Arndt RN RN tw2 Lidia Baker RN tw2 Corrections: (The following items were deleted from the chart) 09:19 09:19 NS 0.9% 1000 ml IV at 125 ml/hr continuous ordered. sv sv 09:19 08:52 Hospitalization Ordered by Lavell Perez for Inpatient Admission. Preliminary eb diagnosis is CPR with spont return of circulation; Hyperglycemia, unspecified. Bed requested for Intensive Care Unit. Status is Inpatient Admission. Condition is Critical. Problem is new. Symptoms have improved. UTI on Admission? No. kdr 12:07 09:19 07/10/2019 08:52 Hospitalization Ordered by aLvell Perez for Inpatient ms Admission. Preliminary diagnosis is CPR with spont return of circulation; Hyperglycemia, unspecified. Bed requested for Intensive Care Unit. Status is Inpatient Admission. Condition is Critical. Problem is new. Symptoms have improved. UTI on Admission? No. eb 12:28 12:07 07/10/2019 08:52 Hospitalization Ordered by Lavell Perez for Inpatient dw Admission. Preliminary diagnosis is CPR with spont return of circulation; Hyperglycemia, unspecified. Bed requested for [facility] ER HOLD. Status is Inpatient Admission. Condition is Critical. Problem is new. Symptoms have improved. UTI on Admission? No. ms 14:24 12:28 07/10/2019 08:52 Hospitalization Ordered by Lavell Perez for Inpatient hb Admission. Preliminary diagnosis is CPR with spont return of circulation; Hyperglycemia, unspecified. Bed requested for Intensive Care Unit. Status is Inpatient Admission. Condition is Critical. Problem is new. Symptoms have improved. UTI on Admission? No. dw
--- NOTE | 2019-07-10 09:06 | RAD REPORT ---
EXAM DESCRIPTION: CT - Head Brain Wo Cont - 07/10/2019 8:51 am CLINICAL HISTORY: Alteration of consciousness/CPR COMPARISON: 2016 TECHNIQUE: Computed axial tomography of the head was obtained. IV contrast was not requested. All CT scans are performed using dose optimization technique as appropriate and may include automated exposure control or mA/KV adjustment according to patient size. FINDINGS: An intracranial bleed is not seen . Loss of the olivares-white matter differentiation. Sulci, cisterns and ventricles are small. This is comp atible with cerebral edema. No extra-axial fluid collection is noted. Fluid within the sinuses/ mastoids is not seen. IMPRESSION: Cerebral edema
[2019-07-10 09:09] LABS: Barbiturates NEGATIVE (NEGATIVE); Benzodiazepines NEGATIVE (NEGATIVE); Cocaine NEGATIVE (NEGATIVE); METHAMPHETAM NEGATIVE (NEGATIVE); Methadone NEGATIVE (NEGATIVE); Opiates NEGATIVE (NEGATIVE); Phencyclidine NEGATIVE (NEGATIVE); THC Cannibis NEGATIVE (NEGATIVE)
[2019-07-10 09:27] LABS: Urine Bacteria 20-50 /HPF (NONE SEEN); Urine Culture Reflex Order REFLEXED
[2019-07-10 09:28] LABS: Urine Amorphous Sediment 1+ /HPF (NONE SEEN); Urine Sperm PRESENT (NONE SEEN)
--- NOTE | 2019-07-10 10:12 | P.HP ---
Certification for Inpatient Patient admitted to: Inpatient With expected LOS: >2 Midnights Practitioner: I am a practitioner with admitting privileges, knowledge of patient current condition, hospital course, and medical plan of care. Services: Services provided to patient in accordance with Admission requirements found in Title 42 Section 412.3 of the Code of Federal Regulations Patient History Date of Service: 07/10/19 Reason for admission: PEA History of Present Illness: 48-year-old gentleman with a history of uncontrolled diabetes was found unresponsive on the ground in front of his home by his stepson. EMS was called and they found him with pulseless electrical activity. CPR was initiated. It is unknown how long the patient had been unresponsive or been in PEA. ACLS is reported to have been carried out for 30 min, 4 runs epinephrine given, 1 defibrillator. The was return of spontaneous circulation. Patient intubated and hooked to ventilator EKG after ROSC was afib. He was hypotensive, remained unresponsive. CT head report cerebral edema. Pupils dilated and unresponsive to light. Systolic blood pressure in the low 100s on Levophed. Blood glucose in the 700s, ABG shows severe acidosis and the CO2 retention. Initial troponin is negative Cause of PEA not known but likely secondary to metabolic acidosis. Patient is admitted for further management. Allergies No Known Drug Allergies Allergy (Unverified 01/25/15 06:55) Unknown No Known Allergies Allergy (Uncoded 07/05/16 09:10) Unknown Home Medications: Glyburide [Diabeta] 10 mg PO BID 01/01/15 Metformin HCl [Glucophage] 1,000 mg PO BID* 01/01/15 - Past Medical/Surgical History Diabetic: Yes -: Diabetes mellitus type 2 -: Peripheral neuropathy -: Hepatic steatosis Past Surgical History: Unable to obtain - Social History Alcohol use: No CD- Drugs: No Caffeine use: Yes Review of Systems is unable to be obtained (Due to unresponsiveness.) Physical Examination - Physical Exam General: Unresponsive HEENT: Other (Pupils fixed and dilated.) Neck: Supple, JVD not distended Respiratory: Clear to auscultation bilaterally, Normal air movement, Other (On mechanical ventilation. No spontaneous breathing movement.) Cardiovascular: No edema, Normal pulses, Regular rate/rhythm, Normal S1 S2, No murmurs Gastrointestinal: Hypoactive, Soft and benign, No ascites Musculoskeletal: No swelling, No erythema Integumentary: No rashes Neurological: Other (Unresponsive, no spontaneously movement, no response to pain, nonverbal.) Lymphatics: No axilla or inguinal lymphadenopathy - Studies Laboratory Data (last 24 hrs) 07/10/19 08:05: PT 11.3, INR 0.96, APTT 29.5 07/10/19 08:05: WBC 12.7 H, Hgb 11.7 L, Hct 37.9 L, Plt Count 194 07/10/19 07:15: Sodium 139, Potassium 4.5, BUN 27 H, Creatinine 2.06 H, Glucose 781 H*, Total Bilirubin 0.2, AST 118 H, ALT 73, Alkaline Phosphatase 151 H, Lipase 58 L Imagings Data: CT head: Diffuse cerebral edema. EKG: Atrial fibrillation. Assessment and Plan - Problems (Diagnosis) (1) PEA (Pulseless electrical activity) Current Visit: Yes Status: Acute (2) Hyperosmolar coma Current Visit: Yes Status: Acute (3) Metabolic acidosis Current Visit: Yes Status: Acute (4) Cerebral edema due to anoxia Current Visit: Yes Status: Acute (5) Atrial fibrillation Current Visit: Yes Status: Acute (6) Acute respiratory failure with hypercapnia Current Visit: Yes Status: Acute - Plan Cause of PEA unknown. I suspect this is secondary to metabolic acidosis. 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 Admit to ICU Continue Levophed drip Continue mechanical ventilation Initiate ventilator bundle Insulin drip and IV hydration Trend troponin. Obtain echocardiogram. Neuro checks Monitor for the next 48-72 hrs Neurologic consult Prophylactic IV antibiotics Repeat chest x-ray in a.m to rule out aspiration pneumonitis. - Advance Directives Does patient have a Living Will: No Does patient have a Durable POA for Healthcare: No
[2019-07-10 10:23] LABS: Arterial Blood Carboxyhemoglob 1.3 % (0-1.5); Blood Gas Oxyhemoglobin 86.3 % (94-97); Blood O2 Saturation 88.2 % (92-98.5)
[2019-07-10 11:01] LABS: Potassium 6.3 mmol/L (3.5-5.1)
[2019-07-10] MEDS ORDERED: SOD POLYSTYREN SUL 15 GM/60 ML UCUP ONE (11:08)
[2019-07-10] MEDS ORDERED: Caclcium Chloride 10% INJ SYR IV ONE (11:08)
[2019-07-10] MEDS ORDERED: ALBUTEROL 2.5 MG/3 ML NEB SOL ONE ×2 (11:08→11:31)
[2019-07-10 11:09] LABS: Urine Blood 2+ (NEG); Urine Glucose 2+ (NEG); Urine Protein 1+ (NEG); Urine pH 5.5 (5.0-7.0)
[2019-07-10] MEDS: CALCIUM GLUC 10% INJ 9.3 MEQ in NA CHLORIDE 0.9% 100 ML IV ONE ×2 (11:42→16:43)
[2019-07-10] MEDS ORDERED: ALBUTEROL 2.5 MG/3 ML NEB SOL NEB ONE (11:43)
--- NOTE | 2019-07-10 12:25 | RAD REPORT ---
EXAM DESCRIPTION: Shama Single View07/10/2019 8:16 am CLINICAL HISTORY: Shortness breath COMPARISON: 2016 FINDINGS: Endotracheal tube has its tip well above the wanda. Nasogastric tube is present within t he stomach. Lungs appear grossly clear. Heart is normal size
[2019-07-10] MEDS ORDERED: D5W 250 ML IV ONE (13:17)
[2019-07-10] MEDS ORDERED: Phenylephrine HCl 10 MG/ML 1 ML VIAL ONE (13:17)
[2019-07-10] MEDS ORDERED: NA CHLORIDE 0.9% 1,000 ML ONE (13:20)
[2019-07-10] MEDS ORDERED: CEFTRIAXONE/SWI 1gm 2 GM/20 ML SYR ONE (13:21)
[2019-07-10] MEDS ORDERED: VANCOMYCIN 1.5 GM in NA CHLORIDE 0.9% 500 ML IVPB ONE (14:00)
[2019-07-10] MEDS ORDERED: ONDANSETRON 4 MG/2 ML VIAL IV PRN (14:03)
[2019-07-10] MEDS: NA CHLORIDE 0.9% 1,000 ML IV SCH ×2 (14:03→22:11)
[2019-07-10] MEDS ORDERED: ACETAMINOPHEN 650MG/RECT SUPP PR PRN (14:03)
[2019-07-10] MEDS ORDERED: NOREPINEPHRINE 4 MG in D5W 250 ML IV PRN (14:03)
[2019-07-10] MEDS: ALBUTEROL 2.5 MG/3 ML NEB SOL NEB SCH ×2 (15:00→20:00)
[2019-07-10 15:18] LABS: Potassium 3.2 mmol/L (3.5-5.1)
[2019-07-10 15:22] LABS: Troponin I 2.98 ng/mL (0.0-0.045)
[2019-07-10 16:19] LABS: Blood Gas Oxyhemoglobin 85.9 % (94-97); Blood O2 Saturation 87.4 % (92-98.5)
[2019-07-10] MEDS: HEPARIN 5000 UNIT/ML 1 ML VIAL SQ SCH (16:42)
[2019-07-10 21:16] LABS: Potassium 2.8 mmol/L (3.5-5.1)
[2019-07-10] MEDS ORDERED: POTASSIUM 25 MEQ EFFERV TAB PO ONE (21:41)
[2019-07-10] MEDS: NOREPINEPHRINE 8 MG in Dextrose 5%-Water 500 ML IV PRN (22:09)
[2019-07-10] MEDS ORDERED: NA CHLORIDE 0.9% 1,000 ML IV ONE (23:33)
[2019-07-11] MEDS: HEPARIN 5000 UNIT/ML 1 ML VIAL SQ SCH ×3 (00:31→17:26)
[2019-07-11] MEDS ORDERED: HYDROCORTISONE SUC 100 MG INJ IV ONE (01:39)
[2019-07-11] MEDS ORDERED: NA CHLORIDE 0.9% 500 ML IV ONE ×2 (01:39→06:05)
[2019-07-11] MEDS: ALBUTEROL 2.5 MG/3 ML NEB SOL NEB SCH ×4 (02:00→20:00)
[2019-07-11 02:40] LABS: Potassium 3.6 mmol/L (3.5-5.1)
[2019-07-11] MEDS ORDERED: NOREPINEPHRINE 4mg/D5W 250mL 4 MG/250 ML BAG IV ONE ×2 (03:33→06:04)
[2019-07-11] MEDS ORDERED: Phenylephrine HCl 10 MG/ML 1 ML VIAL ONE (04:05)
[2019-07-11] MEDS ORDERED: D5W 250 ML IV ONE (04:10)
[2019-07-11 05:43] LABS: Blood Gas Oxyhemoglobin 91.9 % (94-97); Blood O2 Saturation 93.6 % (92-98.5)
[2019-07-11] MEDS ORDERED: Levofloxacin500mg IV 500 MG/100 ML BAG IV SCH (06:00)
[2019-07-11] MEDS: NA CHLORIDE 0.9% 1,000 ML IV SCH (06:03)
[2019-07-11 06:16] LABS: Protime INR 1.09
[2019-07-11 06:20] LABS: Absolute Lymphocytes (CBC) 0.9 K/uL (0.7-4.9); Basophils % 0.3 % (0-1.3); Lymphocytes % 8.2 % (15.3-44.8); MPV 9.4 fL (7.6-11.3); RBC Red Blood Cell Count 4.83 M/uL (4.33-5.43)
[2019-07-11 06:52] LABS: Albumin 2.2 g/dL (3.4-5.0); Bilirubin Total 0.5 mg/dL (0.2-1.0); Magnesium 1.8 mg/dL (1.8-2.4); Phosphorus 3.9 mg/dL (2.5-4.9); Potassium 3.8 mmol/L (3.5-5.1); Protein, Total 5.2 g/dL (6.4-8.2)
[2019-07-11] MEDS ORDERED: MAGNESIUM SULFATE 1 gm IVPB 1 GM/100 ML BAG IV ONE (07:39)
[2019-07-11] MEDS: INSULIN -REGULAR HUMAN 100 UNIT in NA CHLORIDE 0.9% 100 ML IV SCH ×2 (08:19→18:24)
[2019-07-11] MEDS: NOREPINEPHRINE 8 MG in Dextrose 5%-Water 500 ML IV PRN ×4 (08:45→22:58)
[2019-07-11] MEDS: D5W 1,000 ML with NA BICARB 8.4% 100 MEQ IV SCH ×4 (08:50→18:36)
[2019-07-11 09:03] LABS: Blood Morphology Comment NOT SEEN (NOT SEEN); Platelet Estimate ADEQ; Urine White Blood Cell Casts OK
--- NOTE | 2019-07-11 12:04 | RAD REPORT ---
EXAM DESCRIPTION: RAD - Chest Single View - 07/11/2019 8:30 am CLINICAL HISTORY: vented Chest pain. COMPARISON: Chest Single View dated 07/10/2019; Chest Single View dated 07/05/2016; CHEST SINGLE VIEW d ated 11/27/2013; CHEST SINGLE VIEW dated 08/26/2013 FINDINGS: Portable technique limits examination quality. Mild interstitial pulmonary edema is present. The heart is mildly enlarged in size. Enteric tube desc ends into the stomach. Tip of the ET tube is at the very superior margin of the film above the level of the clavicular heads.
[2019-07-11] MEDS ORDERED: NA CHLORIDE 0.9% 500 ML ONE (13:16)
[2019-07-11 16:05] VITALS: BMI 30.4
[2019-07-11] MEDS: DOPAMINE/D5W 400 MG/250 ML BAG IV PRN (18:11)
--- NOTE | 2019-07-11 18:24 | EKG ---
Test Date: 2019-07-10 Test Time: 11:26:24 Lumber Checker: TEMO MEASUREMENT RESULTS: Intervals: Rate: 123 PA: 152 QRSD: 78 QT: 294 QTc: 420 [place]: P: 47 PA: 152 QRS: 34 T: 45 INTERPRETIVE STATEMENTS: Sinus tachycardia Nonspecific ST abnormality Abnormal ECG Compared to ECG 07/10/2019 07:23:46 Atrial fibrillation no longer present ST (T wave) deviation still present Electronically Signed On 07-11-19 18:22:55 CDT by Miguel Monteiro
--- NOTE | 2019-07-11 18:25 | EKG ---
Test Date: 2019-07-10 Test Time: 07:23:46 Dross Skimmer: MEASUREMENT RESULTS: Intervals: Rate: 92 [place]: QRSD: 92 QT: 358 QTc: 442 [place]: P: [place]: QRS: 60 T: 86 INTERPRETIVE STATEMENTS: Atrial fibrillation Nonspecific ST and T wave abnormality Abnormal ECG Compared to ECG 09/15/2018 16:59:56 ST (T wave) deviation now present Sinus rhythm no longer present Electronically Signed On 07-11-19 18:22:59 CDT by Miguel Monteiro
[2019-07-11 20:32] LABS: Arterial Blood Carboxyhemoglob 0.8 % (0-1.5); Blood O2 Saturation 93.5 % (92-98.5)
[2019-07-11 22:20] VITALS: TEMP 99.7
[2019-07-11] MEDS ORDERED: INSULIN -REGULAR HUMAN 50 UNIT/0.5 ML ML IV SCH (23:00)
[2019-07-12] MEDS: HEPARIN 5000 UNIT/ML 1 ML VIAL SQ SCH (00:03)
[2019-07-12] MEDS ORDERED: NA CHLORIDE 0.9% 100 ML ONE (01:48)
[2019-07-12] MEDS ORDERED: INSULIN -REGULAR HUMAN 50 UNIT/0.5 ML ML ONE (01:49)
[2019-07-12] MEDS: INSULIN -REGULAR HUMAN 100 UNIT in NA CHLORIDE 0.9% 100 ML IV SCH (01:52)
[2019-07-12] MEDS: ALBUTEROL 2.5 MG/3 ML NEB SOL NEB SCH (02:00)
--- NOTE | 2019-07-12 02:19 | P.PN ---
Subjective Chief Complaint: PEA Physical Examination - Vital Signs Temperature: 99.7 F Blood Pressure: 63/48 Pulse: 112 Respirations: 14 Pulse Ox (%): 89 Assessment & Plan - Advance Directives Does patient have a Living Will: No Does patient have a Durable POA for Healthcare: No Subjective Unfortunately, Mr. Ralph continues to decline. He continues to be unresponsive. Family is wanting a EEG that they have said that they do not want him to be resuscitated any further if he has any arrhythmias or if he has asystole. Will await for EEG on Friday. Patient is declining, and is not expected to survive more than 48-72 hrs. Review of Systems is unable to be obtained (Due to unresponsiveness.) Physical Examination - Vital Signs reviewed - Physical Exam General: Unresponsive HEENT: Other (Pupils fixed and dilated.) Respiratory: Clear to auscultation bilaterally, Normal air movement, Other (On mechanical ventilation. No spontaneous breathing movement.) Cardiovascular: No edema, Normal pulses, Regular rate/rhythm, Normal S1 S2, No murmurs Gastrointestinal: Hypoactive, Soft and benign, No ascites Neurological: Other (Unresponsive, no spontaneously movement, no response to pain, nonverbal.) Assessment and Plan - Problems (Diagnosis) (1) PEA (Pulseless electrical activity) Current Visit: Yes Status: Acute (2) Hyperosmolar coma Current Visit: Yes Status: Acute (3) Metabolic acidosis Current Visit: Yes Status: Acute (4) Cerebral edema due to anoxia Current Visit: Yes Status: Acute (5) Atrial fibrillation Current Visit: Yes Status: Acute (6) Acute respiratory failure with hypercapnia Current Visit: Yes Status: Acute - Plan Patient with hypoxic Encephalopathy Very poor prognosis Minimal chance of neurologic recovery. Admit to ICU Continue Levophed, neosynephrine drip; add dopamine Continue mechanical ventilation Insulin drip and IV hydration Trend troponin. Obtain echocardiogram. Neuro checks Monitor for the next 48-72 hrs Neurologic consult Prophylactic IV antibiotics Repeat chest x-ray in a.m to rule out aspiration pneumonitis. Critical care time spent with patient was 60 minutes
[2019-07-12] MEDS ORDERED: NOREPINEPHRINE 4 MG/4 ML VIAL ONE (03:02)
[2019-07-12] MEDS: NOREPINEPHRINE 8 MG in Dextrose 5%-Water 500 ML IV PRN (03:05)
[2019-07-12 04:17] VITALS: O2SAT 92
[2019-07-12] MEDS ORDERED: NA CHLORIDE 0.9% 500 ML ONE (04:38)
[2019-07-12] MEDS ORDERED: Phenylephrine HCl 10 MG/ML 1 ML VIAL ONE (04:41)
[2019-07-12] MEDS ORDERED: NA CHLORIDE 0.9% 250 ML ONE (04:42)
[2019-07-12] MEDS: DOPAMINE/D5W 400 MG/250 ML BAG IV PRN (04:44)
[2019-07-12] MEDS: D5W 1,000 ML with NA BICARB 8.4% 100 MEQ IV SCH ×2 (04:47)
[2019-07-12] MEDS ORDERED: VANCOMYCIN 1.5 GM in NA CHLORIDE 0.9% 500 ML IVPB SCH (05:00)
[2019-07-12 05:29] VITALS: BP 69/31
[2019-07-12 06:02] LABS: Magnesium 1.8 mg/dL (1.8-2.4); Phosphorus 5.3 mg/dL (2.5-4.9); Potassium 4.1 mmol/L (3.5-5.1); Protime INR 1.38
[2019-07-12] MEDS ORDERED: VANCOMYCIN 1 GM in NA CHLORIDE 0.9% 250 ML IVPB SCH (14:00)
== END 2019-07-12 05:32 | disposition expired | DRG 208 ==
LOC: ER 07:13 → 3RD-ICU 13:50
PROVIDERS: ADMIT Internal Medicine; ATTEND Family Medicine
PROC: 0BH17EZ Insertion of Endotracheal Airway into Trachea, Via Natural or Artificial Opening (ICD-10-PCS; principal; 2019-07-10)
PROC: 5A1945Z Respiratory Ventilation, 24-96 Consecutive Hours (ICD-10-PCS; 2019-07-10)
DX: J96.02 Acute respiratory failure with hypercapnia (principal); E11.01 Type 2 diabetes mellitus with hyperosmolarity with coma; I46.9 Cardiac arrest, cause unspecified; G93.6 Cerebral edema; E87.2 Acidosis; G93.1 Anoxic brain damage, not elsewhere classified; I48.91 Unspecified atrial fibrillation; E11.40 Type 2 diabetes mellitus with diabetic neuropathy, unspecified
CPT/HCPCS: 31500; 36415; 51702; 70450; 71045; 80048; 80053; 80061; 80076; 80307; 80320; 80329; 81003; 81015; 82010; 82140; 82550; 82553; 82805; 82947; 82962; 83605; 83690; 83735; 84100; 84145; 84439; 84484; 85025; 85610; 85730; 86850; 86900; 86901; 87040; 87077; 87086; 87088; 87186; 87205; 93005; 94002; 94640; 99291; 99292; J0610; J0696; J1265; J1644; J1720; J2370; J3475; J7030; J7060